=== PATIENT | female | born 1975 | race Caucasian/White ===

== ENCOUNTER 2021-07-03 10:36 | Outpatient (REF) | payer BC, SELFPAY ==
[2021-07-03 11:12] LABS: Binax Internal Control QC Valid; Binax Now Covid-19 Ag Negative (Negative); Binax Performed by: HO.BONILM
[2021-07-04 07:52] LABS: HBsAGNum1 0.22 S/CO (0.00-0.99); Hepatitis B Surface Antigen Negative (Negative)
[2021-07-04 08:51] LABS: Rubella IgG Antibody 7.73 Index; Rubeola IgG (Measles) >300.00 AU/mL
[2021-07-05 20:36] LABS: TS Negative Control Passed; TS Panel A 0; TS Panel B 0; TS Positive Control Passed; TSpotTB Negative (Negative)
[2021-07-07 08:17] LABS: HBS Num1 18.27 mIU/mL (0-7.99); ~Hepatitis B Surface Antibody REACTIVE (Nonreactive)
== END 2021-07-03 10:37 | disposition home or self-care (01) ==
LOC: HO.HMGCLDS 10:36
PROVIDERS: Internal Medicine; Visit Provider Internal Medicine
DX: Z00.00 Encounter for general adult medical examination without abnormal findings (principal); J06.9 Acute upper respiratory infection, unspecified; Z78.9 Other specified health status; Z11.1 Encounter for screening for respiratory tuberculosis
CPT/HCPCS: 36415; 86481; 86706; 86735; 86762; 86765; 86787; 87340

== ENCOUNTER 2021-07-03 10:43 | Outpatient (REF) | payer BC, SELFPAY | END 2021-07-03 10:44 | disposition home or self-care (01) | LOC: HO.HMGCLDS 10:43 | PROVIDERS: PCP Internal Medicine; Visit Provider Internal Medicine | DX: Z13.89 Encounter for screening for other disorder (principal) ==

== ENCOUNTER 2021-10-31 10:59 | Outpatient (REF) | payer OTHER, SELFPAY ==
[2021-10-31 13:53] LABS: MANUAL DIFF FLAG NO
[2021-10-31 13:58] LABS: Basophils Percent Auto 0.5 % (0-2); Eosinophils Absolute Auto 0.1 X10*3/uL (0.0-0.4); Eosinophils Percent Auto 1.6 % (0-4); Hematocrit 39.1 % (37.0-47.0); Hemoglobin 12.6 g/dl (12.0-16.0); Imm Gran Abs Auto 0.02 X10*3/uL (0.00-0.03); Imm Gran Pct Auto 0.3 % (0.0-0.4); Lymphocytes Absolute Auto 2.1 X10*3/uL (1.2-4.9); Lymphocytes Percent Auto 33.2 % (20-40); Mean Corpuscular HGB Conc 32.2 g/dl (31.0-35.0); Mean Corpuscular Hemoglobin 30.4 pg (27.0-33.0); Mean Corpuscular Volume 94.4 fL (80.0-98.0); Mean Platelet Volume 10.5 fL (9.4-12.3); Monocytes Absolute Auto 0.4 X10*3/uL (0.1-1.2); Monocytes Percent Auto 6.5 % (2-11); Neutrophils Absolute Auto 3.7 x10*3/uL (2.0-8.3); Neutrophils Percent Auto 57.9 % (45-73); Platelet Count 303 X10*3/uL (160-400); Red Blood Count 4.14 X10*6/uL (4.20-5.50); Red Cell Distribution Width 13.1 % (11.0-16.0); White Blood Count 6.4 X10*3/uL (4.8-10.8)
[2021-10-31 14:18] LABS: Alanine Aminotransferase 10 U/L (0-31); Alkaline Phosphatase 71 U/L (39-117); Anion Gap 10 (12-20); Aspartate Amino Transferase 12 U/L (5-31); Bilirubin Total 0.2 mg/dL (0.0-1.0); Blood Urea Nitrogen 8 mg/dL (9-16); Calcium 9.4 mg/dL (8.4-10.2); Carbon Dioxide 27 mmol/L (22-29); Chloride 105 mmol/L (96-108); Estimated Glomerular Filt Rate > 60; Glucose Random 92 mg/dL (60-115); Potassium 4.1 mmol/L (3.3-5.1); Sodium 138 mmol/L (135-145); Total Protein 6.9 g/dL (6.5-8.0)
[2021-10-31 14:41] LABS: TSH reflex Free T4 0.93 uIU/mL (0.32-4.0)
== END 2021-10-31 11:00 | disposition home or self-care (01) ==
LOC: HO.HMGCLDS 10:59
PROVIDERS: PCP Internal Medicine; Visit Provider Internal Medicine
DX: R05.9 Cough, unspecified (principal); R09.82 Postnasal drip; R53.83 Other fatigue; R68.89 Other general symptoms and signs
CPT/HCPCS: 36415; 80053; 84443; 85025

== ENCOUNTER 2022-01-03 10:10 | Outpatient (REF) | payer OTHER, SELFPAY ==
[2022-01-03 11:51] LABS: Alanine Aminotransferase 10 U/L (0-31); Albumin Level 4.1 g/dL (3.5-5.0); Alkaline Phosphatase 75 U/L (39-117); Anion Gap 11 (12-20); Aspartate Amino Transferase 13 U/L (5-31); Bilirubin Total 0.4 mg/dL (0.0-1.0); Blood Urea Nitrogen 8 mg/dL (9-16); Calcium 8.9 mg/dL (8.4-10.2); Carbon Dioxide 27 mmol/L (22-29); Chloride 104 mmol/L (96-108); Cholesterol 174 mg/dL; Estimated Glomerular Filt Rate > 60; Glucose Fasting 92 mg/dL (60-99); HDL Cholesterol 53 mg/dL; LDL Cholesterol Calculated 100 mg/dl; Potassium 4.6 mmol/L (3.3-5.1); Sodium 137 mmol/L (135-145); Triglycerides 108 mg/dL
[2022-01-03 12:00] LABS: HBS Num1 13.84 mIU/mL (0-7.99); ~Hepatitis B Surface Antibody REACTIVE (Nonreactive)
[2022-01-03 12:13] LABS: TSH reflex Free T4 0.96 uIU/mL (0.32-4.0); Vitamin D 25-OH Total 21.4 ng/mL (>30)
== END 2022-01-03 10:11 | disposition home or self-care (01) ==
LOC: HO.HMGCLDS 10:10
PROVIDERS: PCP Internal Medicine; Visit Provider Internal Medicine
DX: Z00.00 Encounter for general adult medical examination without abnormal findings (principal); Z78.9 Other specified health status
CPT/HCPCS: 36415; 80053; 80061; 82306; 84443; 86706

== ENCOUNTER 2022-07-18 09:12 | Outpatient (REF) | payer OTHER, SELFPAY ==
[2022-07-18 12:22] LABS: Syphilis Screen Nonreactive (Nonreactive)
[2022-07-18 12:29] LABS: HIV AB/AG Nonreactive (Nonreactive); HIV Num 1 0.05 S/CO (0.00-0.99)
[2022-07-18 13:39] LABS: CT PCR NOT DETECTED (Not Detect.); NG PCR NOT DETECTED (Not Detect.)
== END 2022-07-18 09:13 | disposition home or self-care (01) ==
LOC: HO.HMGCLDS 09:12
PROVIDERS: PCP Internal Medicine; Visit Provider Internal Medicine
DX: Z11.9 Encounter for screening for infectious and parasitic diseases, unspecified (principal); Z11.4 Encounter for screening for human immunodeficiency virus [HIV]; Z11.3 Encounter for screening for infections with a predominantly sexual mode of transmission
CPT/HCPCS: 0353U; 36415; 86780; 87389

== ENCOUNTER 2023-01-21 07:44 | Outpatient (AMB) | payer OTHER, SELFPAY ==
--- NOTE | 2023-01-21 07:51 | MHC.PC.OV ---
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 Required: No Accompanied by: Self / Same As Patient Allergies aloe [ALOE] Allergy (Intermediate, Verified 01/21/23 07:53) HIVES azithromycin [From ZITHROMAX] Allergy (Intermediate, Verified 01/21/23 07:53) HIVES Penicillins [PCN] Allergy (Intermediate, Verified 01/21/23 07:53) HIVES sulfamethoxazole [From BACTRIM] Allergy (Intermediate, Verified 01/21/23 07:53) HIVES trimethoprim [From BACTRIM] Allergy (Intermediate, Verified 01/21/23 07:53) HIVES amoxicillin Allergy (Unknown, Verified 01/21/23 07:53) unknown penicillamine Allergy (Unknown, Verified 01/21/23 07:53) Unknown Sulfa (Sulfonamide Antibiotics) Allergy (Unknown, Verified 01/21/23 07:53) Swelling Medication List - Last Reconciled 01/21/23 by Milena Moy MD doxylamine succinate (Unisom (doxylamine)) 25 mg PO BEDTIME PRN esomeprazole magnesium (Nexium) 20 mg PO DAILY [tylenol PO] Tobacco use date assessed: 01/21/23 Dental Screening Dental Screen Date: 01/21/23 Did you have a dental visit in the last 12 months?: Yes Did you have a dental problem in the last 6 months where you did not have access to dental care?: No Was dental information given to patient?: Patient has dentist HPI Annual PE HPI Details Pt presents for PE. 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 1. Little interest or pleasure in doing things: several days 2. Feeling down, depressed, or hopeless: several days 3. Trouble falling or staying asleep, or sleeping too much: nearly every day 4. Feeling tired or having little energy: nearly every day 5. Poor appetite or overeating: nearly every day 6. Feeling bad about yourself - or that you are a failure or have let yourself or your family down: several days 7. Trouble concentrating on things, such as reading the newspaper or watching television: several days 8. Moving or speaking so slowly that other people could have noticed. Or the opposite - being so fidgety or restless that you have been moving around a lot more than usual: not at all 9. Thoughts that you would be better off or of hurting yourself in some way: not at all Total score: 13 Depression Screening Interpretation: Positive 34639 - PHQ-9 Billing: Yes Source: Developed by Drs. Santana Ceron, Ester Maher, Durga Caballero and colleagues, with an educational ai from [employer]. Thrive Questionnaire Date Thrive assessed: 01/21/23 I am a: Patient What is your living situation today?: I have a steady place to live Within the past 12 months, did the food you bought not last and you didn't have the money to get more?: Never true Within the past 12 months, did you worry whether your food would run out before you got money to buy more?: Never true Do you have trouble paying for medicines?: No Do you have trouble getting transportation to medical appointments?: No Do you have trouble paying your heating and electricity bill?: No Do you have trouble taking care of your child, family member or friend?: No Do you have trouble with day-to-day activities such as bathing, preparing meals, shopping, managing finances, etc.?: No Are you currently unemployed and looking for a job?: No Are you interested in more education?: No Please select the resources that you would like help with: None Currently or been in a relationship where the following occur: no concerns reported JUANY-7 AMB Questionnaire JUANY-7 Date JUANY - 7 assessed: 01/21/23 Feeling nervous, anxious, or on edge: 1 = Several days Not being able to stop or control worryin = Several days Worrying too much about different things: 1 = Several days Trouble relaxin = Nearly every day Being so restless that it is hard to sit still: 1 = Several days Becoming easily annoyed or irritable: 1 = Several days Feeling afraid as if something awful might happen: 1 = Several days Total JUANY-7 score (0-4 normal; 5-9 mild; 10-14 moderate; 15-21 severe): 9 Source: Developed by Drs. Santana Ceron, Ester Maher, Durga Caballero and colleagues, with an educational ai from [employer]. JUANY-7 Assessment Billing JUANY-7 Assessment Tool: JUANY-7 Assessment 61862 Review of Systems Const All systems reviewed & are unremarkable except as noted in HPI and below Reports no additional complaints Eyes Reports no additional complaints ENT Reports no additional complaints Card Reports no additional complaints GI Reports no additional complaints Reports no additional complaints Endo Reports no additional complaints Physical exam (Primary Care) Vital Signs: Last Vital Signs Pulse 70 01/21/23 07:56 BP 126/74 01/21/23 07:56 Pulse Ox 100 01/21/23 07:56 BMI result Body Mass Index 34.8 Tobacco/Smoking Status: Tobacco use Status Tobacco use date assessed 01/21/23 01/21/23 08:01 Patient Tobacco Use Status Never used Tobacco 01/21/23 07:56 e-Cigarette/Vaping Use Former Use 01/21/23 07:56 PHQ-9: PHQ-9 Score PHQ-9: Total score 13 01/21/23 08:01 Depression Screening Interpretation: Positive Thrive Assessment: Date of Thrive Assessment Date Thrive assessed 01/21/23 01/21/23 08:01 Currently or been in a relationship where the following occur: no concerns reported Const General: no acute distress HENMT Head: Yes normal to inspection Ears: hearing grossly normal bilaterally Mouth: Normal oral and palatal mucosa present Throat: Yes posterior oropharynx normal Eyes General: appearance normal, both eyes and all related structures Neck Neck: Yes no lymphadenopathy and Yes supple Chest Breast/axilla inspection: normal inspection of the breasts Breast/axilla palpation: normal palpation of the breasts Resp Effort & Inspection: normal respiratory effort Auscultation: clear to auscultation bilaterally Cardio Rhythm: regular rhythm Heart sounds: S1 normal heart sound present and S2 normal heart sound present GI Inspection: Yes normal to inspection Palpation (GI): No hepatosplenomegaly present Auscultation: normal bowel sounds External Female Exam: normal external appearance Speculum Exam - Vagina: normal appearance of the vagina Speculum Exam - Cervix: normal appearance of the cervix Bimanual exam- vagina & uterus: normal bimanual exam Assessment and Plan Assessment & Plan (1) Annual physical exam: Code(s): Z00.00 - Encounter for general adult medical examination without abnormal findings Plan: Well-balanced diet regular exercise discussed with the patient. she will have a fasting blood work today. Mammogram will be scheduled and patient will be referred to GI for colonoscopy. (2) Vitamin D deficiency: Code(s): E55.9 - Vitamin D deficiency, unspecified Plan: Continue vitamin-D supplement Orders: Orders MM screening mammo BI Today Z12.31 - Encounter for screening mammogram for malignant neoplasm of breast Comprehensive [place]. Panel Fast Today E55.9 - Vitamin D deficiency, unspecified, Z00.00 - Encounter for general adult medical examination without abnormal findings Lipid Panel Today E55.9 - Vitamin D deficiency, unspecified, Z00.00 - Encounter for general adult medical examination without abnormal findings TSH reflex Free T4 Today E55.9 - Vitamin D deficiency, unspecified, Z00.00 - Encounter for general adult medical examination without abnormal findings Vitamin D 25-OH Total Today E55.9 - Vitamin D deficiency, unspecified, Z00.00 - Encounter for general adult medical examination without abnormal findings Complete Blood Count Auto Diff Today E55.9 - Vitamin D deficiency, unspecified, Z00.00 - Encounter for general adult medical examination without abnormal findings IRON PROFILE Today E55.9 - Vitamin D deficiency, unspecified, Z00.00 - Encounter for general adult medical examination without abnormal findings Pap Smear Today Z00.00 - Encounter for general adult medical examination without abnormal findings Referrals Gastroenterology Referral Z00.00 - Encounter for general adult medical examination without abnormal findings Medications: New clindamycin phosphate 1% 1 appl topical BEDTIME 30 grams 1RF Coding Level of Care Code Est Pt Prev Care 40-64y(71985) Diagnoses Annual physical exam Z00.00 Vitamin D deficiency E55.9 Additional Codes JUANY-7 Assessment Billing - JUANY-7 Assessment Tool: JUANY-7 Assessment 45573 ([id number])
[2023-01-21 07:56] VITALS: BP 126/74; PULSE 70; O2SAT 100; BMI 34.8
== END 2023-01-21 08:56 | disposition home or self-care (01) ==
PROVIDERS: PCP Internal Medicine; Visit Provider Internal Medicine
DX: Z00.00 Encounter for general adult medical examination without abnormal findings (principal); E55.9 Vitamin D deficiency, unspecified
CPT/HCPCS: 99396

== ENCOUNTER 2023-01-21 08:55 | Outpatient (REF) | payer OTHER, SELFPAY ==
[2023-01-21 11:25] LABS: MANUAL DIFF FLAG NO
[2023-01-21 11:26] LABS: Appearance Urine Clear; Color Urine Yellow; Glucose Urine UA Negative (Negative); Leukocyte Esterase Urine Small (1+) (Negative); Nitrite Urine Negative (Negative); PH 6.5 (5.0-9.0); Specific Gravity - Urine 1.015 (1.005-1.025); UMIC TRIGGER UA YES; Urine Blood Negative (Negative); Urine Ketones Negative (Negative); Urine Protein Negative (Neg-Trace)
[2023-01-21 11:37] LABS: Bacteria Urine Trace (None Seen); RBC Urine 0-2 /HPF (0-2); WBC Urine 0-5 /HPF (0-5)
[2023-01-21 11:55] LABS: Basophils Absolute Auto 0.1 X10*3/uL (0.0-0.2); Basophils Percent Auto 1.1 % (0-2); Eosinophils Absolute Auto 0.1 X10*3/uL (0.0-0.4); Eosinophils Percent Auto 1.1 % (0-4); Hematocrit 42.1 % (37.0-47.0); Hemoglobin 13.3 g/dl (12.0-16.0); Imm Gran Abs Auto 0.02 X10*3/uL (0.00-0.03); Imm Gran Pct Auto 0.3 % (0.0-0.4); Lymphocytes Absolute Auto 1.8 X10*3/uL (1.2-4.9); Lymphocytes Percent Auto 27.7 % (20-40); Mean Corpuscular HGB Conc 31.6 g/dl (31.0-35.0); Mean Corpuscular Hemoglobin 30.3 pg (27.0-33.0); Mean Corpuscular Volume 95.9 fL (80.0-98.0); Monocytes Absolute Auto 0.4 X10*3/uL (0.1-1.2); Monocytes Percent Auto 6.6 % (2-11); Neutrophils Absolute Auto 4.1 x10*3/uL (2.0-8.3); Neutrophils Percent Auto 63.2 % (45-73); Platelet Count 275 X10*3/uL (160-400); Red Blood Count 4.39 X10*6/uL (4.20-5.50); Red Cell Distribution Width 12.8 % (11.0-16.0); White Blood Count 6.5 X10*3/uL (4.8-10.8)
[2023-01-21 12:11] LABS: Alanine Aminotransferase 11 U/L (0-31); Albumin Level 4.2 g/dL (3.5-5.0); Alkaline Phosphatase 68 U/L (39-117); Anion Gap 15 (12-20); Aspartate Amino Transferase 14 U/L (5-31); Bilirubin Total 0.5 mg/dL (0.0-1.0); Blood Urea Nitrogen 8 mg/dL (9-16); Calcium 9.3 mg/dL (8.4-10.2); Carbon Dioxide 23 mmol/L (22-29); Chloride 105 mmol/L (96-108); Cholesterol 176 mg/dL; Estimated Glomerular Filt Rate > 60; Glucose Fasting 89 mg/dL (60-99); HDL Cholesterol 60 mg/dL; Iron 106 mcg/dL (30-160); LDL Cholesterol Calculated 97 mg/dl; Percent Iron Saturation 36 % (15-50); Potassium 4.3 mmol/L (3.3-5.1); Sodium 139 mmol/L (135-145); Total Iron Binding Capacity 294 mcg/dL (228-428); Total Protein 7.3 g/dL (6.5-8.0); Triglycerides 97 mg/dL; Unsaturated Iron Binding 188 ug/dL
[2023-01-21 12:31] LABS: TSH reflex Free T4 0.94 uIU/mL (0.32-4.0)
[2023-01-29 06:34] LABS: HPV mRNA E6/E7 Not Detected (Not Detected)
== END 2023-01-21 08:56 | disposition home or self-care (01) ==
LOC: HO.HMGCLDS 08:55
PROVIDERS: PCP Internal Medicine; Visit Provider Internal Medicine
DX: Z00.00 Encounter for general adult medical examination without abnormal findings (principal); Z12.4 Encounter for screening for malignant neoplasm of cervix; Z11.51 Encounter for screening for human papillomavirus (HPV); E55.9 Vitamin D deficiency, unspecified
CPT/HCPCS: 36415; 80053; 80061; 81001; 83540; 84443; 85025; 87624; 88142

== ENCOUNTER 2023-02-13 13:14 | Outpatient (AMB) | payer OTHER, SELFPAY ==
--- NOTE | 2023-02-13 13:29 | MHC.OFFWIV ---
Intake Vital Signs 02/13/23 13:30 Weight 212 lb BP 120/80 Blood Pressure Location Rt brachial Position Sitting Pulse 85 Pulse Source Pulse Oximeter Temp 98.3 F Temp Source Oral Pulse Oximetry (%) 98 Oxygen Delivery Method Room Air Intake Visit Reasons: EP, Rash in face Intake Note: Patient here because she had an allergic reaction to the diflucan she was taking, she woke up the next day with swollen face and was given prednisone and told to take benadryl and still experiencing the rash which hurts . Patient Tobacco Use Status: Never used Tobacco Allergies aloe [ALOE] Allergy (Intermediate, Verified 02/14/23 09:19) HIVES azithromycin [From ZITHROMAX] Allergy (Intermediate, Verified 02/14/23 09:19) HIVES Penicillins [PCN] Allergy (Intermediate, Verified 02/14/23 09:19) HIVES sulfamethoxazole [From BACTRIM] Allergy (Intermediate, Verified 02/14/23 09:19) HIVES trimethoprim [From BACTRIM] Allergy (Intermediate, Verified 02/14/23 09:19) HIVES amoxicillin Allergy (Unknown, Verified 02/14/23 09:19) unknown penicillamine Allergy (Unknown, Verified 02/14/23 09:19) Unknown Sulfa (Sulfonamide Antibiotics) Allergy (Unknown, Verified 02/14/23 09:19) Swelling Medication List - Last Reconciled 02/14/23 by Diego Odonnell MD clindamycin phosphate 1% 1 appl topical BEDTIME doxylamine succinate (Unisom (doxylamine)) 25 mg PO BEDTIME PRN esomeprazole magnesium (Nexium) 20 mg PO DAILY hydrocortisone 2.5% 1 appl topical BID PRN [tylenol PO] Do you need a note to return to daycare/school/sports/work: No HPI EP, Rash in face HPI Details 48-year-old female presents to the office for a sick visit. Patient has a rash on the face that she is concerned about. Symptoms started last week and was seen at an of the walk-in facility. She was put on prednisone and Pepcid. She has begun to taper the dose on prednisone. The reason for her visit here is not very clear. Continues to have the redness on the face but the itching is decreasing. She has a few crusting lesions at the corners of her mouth. 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 Thickened and roughened skin at the corners of the mouth. Assessment & Plan Assessment & Plan (1) Rash: Code(s): R21 - Rash and other nonspecific skin eruption Plan: Continue the tapering dose of prednisone. Hydrocortisone cream to apply at the corners of the mouth. Reassurance. Medications: New hydrocortisone 2.5% 1 appl topical BID PRN 20 grams 0RF skin irritation Coding Level of Care Code Est Pt Level 3 (88455) Diagnoses Rash R21
[2023-02-13 13:30] VITALS: BP 120/80; PULSE 85; TEMP 36.8; O2SAT 98
== END 2023-02-13 14:33 | disposition home or self-care (01) ==
PROVIDERS: PCP Internal Medicine; Visit Provider Internal Medicine
DX: R21 Rash and other nonspecific skin eruption (principal)
CPT/HCPCS: 99213

== ENCOUNTER 2023-03-02 07:49 | Outpatient (REF) | payer OTHER, SELFPAY ==
--- NOTE | ~2023-03-02 | MM_ITS ---
EXAMINATION: MM SCREENING DIGITAL BREAST TOMOSYNTHESIS, BILATERAL CLINICAL INFORMATION: Screening. Asymptomatic. COMPARISON: Mammography: This is a baseline study. TECHNIQUE: Digital breast tomosynthesis is performed in both the craniocaudal and mediolateral oblique views along with computer-aided detection (CAD). Synthesized 2D images are generated from the tomosynthesis. FINDINGS: There are scattered areas of fibroglandular density (ACR BI-RADS breast composition Category b). There are no significant masses, abnormal calcifications, or other abnormalities. MM/MM tomosynthesis screening BI IMPRESSION: No mammographic evidence of malignancy. ASSESSMENT: BI-RADS BI-RADS 1 - Negative RECOMMENDATION: Routine annual mammography screening. 1 year F/U This examination should not preclude the clinical evaluation of a suspicious palpable abnormality. This patient's information was entered into a reminder system with a target due date for their next mammogram.
== END 2023-03-02 07:50 | disposition home or self-care (01) ==
LOC: HO.MAMMO 07:49
PROVIDERS: PCP Internal Medicine; Visit Provider Internal Medicine
DX: Z12.31 Encounter for screening mammogram for malignant neoplasm of breast (principal)
CPT/HCPCS: 77063; 77067

== ENCOUNTER → 2023-03-02 08:00 | Outpatient (BNV) | payer OTHER, SELFPAY | PROVIDERS: PCP Internal Medicine; Visit Provider Radiology Diagnostic Radiology | DX: Z12.31 Encounter for screening mammogram for malignant neoplasm of breast (principal) | CPT/HCPCS: 77063; 77067 ==

== ENCOUNTER 2023-09-27 09:13 | Outpatient (AMB) | payer OTHER, SELFPAY ==
[2023-09-27 09:14] VITALS: BP 150/90; PULSE 86; TEMP 36.8; O2SAT 97; BMI 36.3
--- NOTE | 2023-09-27 09:14 | AM.OFFWIN_ITS ---
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) Intake Note: pt is here today for chest tight chills started 3 weeks ago Patient Tobacco Use Status: Never used Tobacco Allergies aloe [ALOE] Allergy (Intermediate, Verified 09/27/23 09:38) HIVES azithromycin [From ZITHROMAX] Allergy (Intermediate, Verified 09/27/23 09:38) HIVES Penicillins [PCN] Allergy (Intermediate, Verified 09/27/23 09:38) HIVES sulfamethoxazole [From BACTRIM] Allergy (Intermediate, Verified 09/27/23 09:38) HIVES trimethoprim [From BACTRIM] Allergy (Intermediate, Verified 09/27/23 09:38) HIVES amoxicillin Allergy (Unknown, Verified 09/27/23 09:38) unknown penicillamine Allergy (Unknown, Verified 09/27/23 09:38) Unknown Sulfa (Sulfonamide Antibiotics) Allergy (Unknown, Verified 09/27/23 09:38) Swelling Medication List - Last Reconciled 09/27/23 by Diego Odonnell MD doxylamine succinate (Unisom (doxylamine)) 25 mg PO BEDTIME PRN esomeprazole magnesium (Nexium) 20 mg PO DAILY [tylenol PO] Do you need a note to return to daycare/school/sports/work: Yes HPI EP 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 For many months she has been experiencing flutters in her chest, nervousness. She had to leave work as her symptoms worsened this morning. She has talked about this to her primary care in her physical appointment, therapy was suggested, it could not be arranged due to insurance issues. Patient does not sleep well at night and has symptoms of fatigue all day. Does not exercise and does not follow any particular diet. 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 Tobacco Use Status: Never used Tobacco e-Cigarette/Vaping Use: Former Use Current occupational status: employed Cognitive needs: No Hearing needs: No Vision needs: Yes Physical Exam Vital Signs: Last Vital Signs Temp 98.2 F 09/27/23 09:14 Pulse 86 09/27/23 09:14 BP 150/90 H 09/27/23 09:14 Pulse Ox 97 09/27/23 09:14 Oxygen Delivery Method Room Air 09/27/23 09:14 BMI result Body Mass Index 36.3 Const General: cooperative and healthy appearing Nutritional Appearance: well nourished Orientation/consciousness: patient oriented x3 Limitations: no limitations HEENT Head: Yes normal to inspection Eyes General: appearance normal, both eyes and all related structures Neck Neck: Yes normal visual inspection Chest Chest palpation & inspection: normal palpation of entire chest wall Resp Effort & Inspection: normal respiratory effort Neuro General: patient oriented x3 Office Procedures EKG Details: NSR. [id number], Complete Assessment & Plan Assessment & Plan (1) Fatigue due to depression: Code(s): F32.A - Depression, unspecified; R53.83 - Other fatigue Plan: Her symptoms are mostly related to anxiety. EKG was reviewed which is within normal limits. Blood work to rule out any thyroid disorders has been ordered. Community health navigator was contacted and patient had a discussion with her regarding therapy options. Note for work given. Orders: Orders Complete Blood Count no Diff Today F32.A - Depression, unspecified, R53.83 - Other fatigue Thyroid Stimulating Hormone Today F32.A - Depression, unspecified, R53.83 - Other fatigue AMB EKG-In Office Today R07.9 - Chest pain, unspecified Basic Metabolic Panel Today F32.A - Depression, unspecified, R53.83 - Other fatigue Liver Panel Today F32.A - Depression, unspecified, R53.83 - Other fatigue Lipid Panel Today F32.A - Depression, unspecified, R53.83 - Other fatigue UA and rflx microscopic Today F32.A - Depression, unspecified, R53.83 - Other fatigue Coding Level of Care Code Est Pt Level 4 (72084) Diagnoses Fatigue due to depression F32.A; R53.83 CPT Codes EKG - CPT: 04455-[id number], Complete ([id number])
== END 2023-09-27 10:08 | disposition home or self-care (01) ==
PROVIDERS: PCP Internal Medicine; Visit Provider Internal Medicine
DX: F32.A Depression, unspecified (principal); R53.83 Other fatigue
CPT/HCPCS: 93000; 99214

== ENCOUNTER 2023-09-27 09:59 | Outpatient (REF) | payer OTHER, SELFPAY ==
[2023-09-27 13:51] LABS: Hematocrit 39.5 % (37.0-47.0); Hemoglobin 12.8 g/dl (12.0-16.0); Mean Corpuscular HGB Conc 32.4 g/dl (31.0-35.0); Mean Corpuscular Hemoglobin 30.8 pg (27.0-33.0); Mean Platelet Volume 10.7 fL (9.4-12.3); Platelet Count 314 X10*3/uL (160-400); Red Blood Count 4.16 X10*6/uL (4.20-5.50); Red Cell Distribution Width 14.2 % (11.0-16.0); White Blood Count 7.6 X10*3/uL (4.8-10.8)
[2023-09-27 14:10] LABS: Appearance Urine Cloudy; Color Urine Yellow; Glucose Urine UA Negative (Negative); Leukocyte Esterase Urine Negative (Negative); Nitrite Urine Negative (Negative); PH 5.5 (5.0-9.0); Urine Blood Negative (Negative); Urine Ketones Negative (Negative); Urine Protein Negative (Neg-Trace)
[2023-09-27 14:20] LABS: Alanine Aminotransferase 11 U/L (0-31); Alkaline Phosphatase 76 U/L (39-117); Anion Gap 11 (12-20); Aspartate Amino Transferase 17 U/L (5-31); Bilirubin Direct < 0.2 mg/dL (0.0-0.5); Bilirubin Total 0.2 mg/dL (0.0-1.0); Blood Urea Nitrogen 10 mg/dL (9-16); Calcium 9.1 mg/dL (8.4-10.2); Carbon Dioxide 28 mmol/L (22-29); Chloride 105 mmol/L (96-108); Cholesterol 180 mg/dL (<200); Estimated Glomerular Filt Rate > 60; Glucose Random 107 mg/dL (60-115); HDL Cholesterol 56 mg/dL (>40); LDL Cholesterol Calculated 90 mg/dL (<100); Potassium 4.2 mmol/L (3.3-5.1); Sodium 140 mmol/L (135-145); Total Protein 7.3 g/dL (6.5-8.0); Triglycerides 171 mg/dL (<150)
[2023-09-27 14:24] LABS: Thyroid Stimulating Hormone 0.78 uIU/mL (0.32-4.0)
== END 2023-09-27 10:00 | disposition home or self-care (01) ==
LOC: HO.HMGCLDS 09:59
PROVIDERS: PCP Internal Medicine; Visit Provider Internal Medicine
DX: Z13.6 Encounter for screening for cardiovascular disorders (principal); F32.A Depression, unspecified; R53.83 Other fatigue
CPT/HCPCS: 36415; 80048; 80061; 80076; 81003; 84443; 85027

== ENCOUNTER 2024-01-04 09:22 | Outpatient (REF) | payer OTHER, SELFPAY ==
[2024-01-04 11:53] LABS: Vitamin D 25-OH Total 90.9 ng/mL (>30)
[2024-01-06 04:58] LABS: HBS Num1 12.51 mIU/mL (0-7.99); ~Hepatitis B Surface Antibody REACTIVE (Nonreactive)
[2024-01-07 19:34] LABS: Rubella IgG Antibody 6.59 Index; Rubeola IgG (Measles) >300.00 AU/mL
== END 2024-01-04 09:23 | disposition home or self-care (01) ==
LOC: HO.HMGCLDS 09:22
PROVIDERS: PCP Internal Medicine; Visit Provider Internal Medicine
DX: Z00.00 Encounter for general adult medical examination without abnormal findings (principal); E55.9 Vitamin D deficiency, unspecified; Z78.9 Other specified health status
CPT/HCPCS: 36415; 82306; 86706; 86735; 86762; 86765; 86787

== ENCOUNTER 2024-01-29 08:12 | Outpatient (AMB) | payer OTHER, SELFPAY ==
--- NOTE | 2024-01-29 08:17 | A.OFFPC_ITS ---
Vital Signs 01/29/24 08:18 Height 5 ft 5 in Weight 217 lb BMI 36.1 BP 120/84 Blood Pressure Location Rt brachial Position Sitting Pulse 88 Pulse Source Pulse Oximeter Pulse Oximetry (%) 99 Oxygen Delivery Method Room Air Intake Visit Reasons: PE Intake Note: Pt is here today for PE. Allergies aloe [ALOE] Allergy (Intermediate, Verified 01/29/24 08:21) HIVES azithromycin [From ZITHROMAX] Allergy (Intermediate, Verified 01/29/24 08:21) HIVES Penicillins [PCN] Allergy (Intermediate, Verified 01/29/24 08:21) HIVES sulfamethoxazole [From BACTRIM] Allergy (Intermediate, Verified 01/29/24 08:21) HIVES trimethoprim [From BACTRIM] Allergy (Intermediate, Verified 01/29/24 08:21) HIVES amoxicillin Allergy (Unknown, Verified 01/29/24 08:21) unknown penicillamine Allergy (Unknown, Verified 01/29/24 08:21) Unknown Sulfa (Sulfonamide Antibiotics) Allergy (Unknown, Verified 01/29/24 08:21) Swelling fluconazole Allergy (Verified 01/29/24 08:21) swelling in the face lips get blisters Medication List - Last Reconciled 01/29/24 by Milena Moy MD doxylamine succinate (Unisom (doxylamine)) 25 mg PO BEDTIME PRN esomeprazole magnesium (Nexium) 20 mg PO DAILY [tylenol PO] valacyclovir 1,000 mg PO DAILY Tobacco use date assessed: 01/29/24 Dental Screening Dental Screen Date: 01/29/24 Did you have a dental visit in the last 12 months?: Yes Did you have a dental problem in the last 6 months where you did not have access to dental care?: No Was dental information given to patient?: Patient has dentist HPI PE HPI Details Pt presents for PE. Pt has been trying to lose weight decreasing caloric intake and exercising regularly. Pt c/o sore throat for 2 days, no fever, chills. 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 1. Little interest or pleasure in doing things: more than half the days 2. Feeling down, depressed, or hopeless: more than half the days 3. Trouble falling or staying asleep, or sleeping too much: nearly every day 4. Feeling tired or having little energy: nearly every day 5. Poor appetite or overeating: nearly every day 6. Feeling bad about yourself - or that you are a failure or have let yourself or your family down: more than half the days 7. Trouble concentrating on things, such as reading the newspaper or watching television: several days 8. Moving or speaking so slowly that other people could have noticed. Or the opposite - being so fidgety or restless that you have been moving around a lot more than usual: not at all 9. Thoughts that you would be better off or of hurting yourself in some way: not at all Total score: 16 Depression Screening Interpretation: Positive (established with a therapist, not interested in meds) Depression Screening Follow-up: Existing condition and In treatment Depression Screening Done: Yes Source: Developed by Drs. Santana Ceron, Ester Maher, Durga Caballero and colleagues, with an educational ai from [email or web address]. Thrive Questionnaire Date Thrive assessed: 01/29/24 I am a: Patient What is your living situation today?: I have a steady place to live Within the past 12 months, did the food you bought not last and you didn't have the money to get more?: Never true Within the past 12 months, did you worry whether your food would run out before you got money to buy more?: Never true Do you have trouble paying for medicines?: Yes Do you have trouble getting transportation to medical appointments?: No Do you have trouble paying your heating and electricity bill?: No Do you have trouble taking care of your child, family member or friend?: No Do you have trouble with day-to-day activities such as bathing, preparing meals, shopping, managing finances, etc.?: No Are you currently unemployed and looking for a job?: No Are you interested in more education?: Yes Please select the resources that you would like help with: Housing/[facility] Currently or been in a relationship where the following occur: No concerns reported THRIVE Score: 0 AUDIT C Alcohol Use Questionnaire (AUDIT-C) 1. How often do you have a drink containing alcohol?: Never 3. How often do you have six or more drinks on one occasion?: Never Total Score: 0 JUANY-7 AMB Questionnaire JUANY-7 Date JUANY - 7 assessed: 01/29/24 Feeling nervous, anxious, or on edge: 2 = More than half the days Not being able to stop or control worryin = More than half the days Worrying too much about different things: 1 = Several days Trouble relaxin = Nearly every day Being so restless that it is hard to sit still: 1 = Several days Becoming easily annoyed or irritable: 1 = Several days Feeling afraid as if something awful might happen: 2 = More than half the days Total JUANY-7 score (0-4 normal; 5-9 mild; 10-14 moderate; 15-21 severe): 12 Source: Developed by Drs. Santana Ceron, Ester Maher, Durga Caballero and colleagues, with an educational ai from [email or web address]. Review of Systems Const All systems reviewed & are unremarkable except as noted in HPI and below Reports no additional complaints Eyes Reports no additional complaints ENT Reports no additional complaints Card Reports no additional complaints Resp Reports no additional complaints GI Reports no additional complaints Reports no additional complaints Physical exam (Primary Care) Vital Signs: Last Vital Signs Pulse 88 01/29/24 08:18 BP 120/84 01/29/24 08:18 Pulse Ox 99 01/29/24 08:18 Oxygen Delivery Method Room Air 01/29/24 08:18 BMI result Body Mass Index 36.1 Tobacco/Smoking Status: Tobacco use Status Tobacco use date assessed 01/29/24 01/29/24 08:23 Patient Tobacco Use Status Never used Tobacco 01/29/24 08:23 e-Cigarette/Vaping Use Former Use 01/29/24 08:17 PHQ-9: PHQ-9 Score PHQ-9: Total score 16 01/29/24 10:53 Depression Screening Interpretation: Positive (established with a therapist, not interested in meds) Depression Screening Follow-up: Existing condition and In treatment Thrive Assessment: Date of Thrive Assessment Date Thrive assessed 01/29/24 01/29/24 08:23 Currently or been in a relationship where the following occur: No concerns reported Const General: comfortable HENMT Head: Yes normal to inspection Ears: hearing grossly normal bilaterally Face and sinus: Yes normal facial exam Mouth: Normal oral and palatal mucosa present Throat: Yes posterior oropharynx normal Eyes General: appearance normal, both eyes and all related structures Neck Neck: Yes no lymphadenopathy and Yes supple Resp Effort & Inspection: normal respiratory effort Auscultation: clear to auscultation bilaterally Cardio Rhythm: regular rhythm Heart sounds: S1 normal heart sound present and S2 normal heart sound present GI Inspection: Yes normal to inspection Palpation (GI): Soft to palpation Percussion: Yes normal to percussion Auscultation: normal bowel sounds Results AMB Rapid Strep AMB Rapid Strep Negative Last Edit by RUPA Nation on 01/29/24 09: 22 Immunizations Boostrix Tdap 2.5 Lf unit-8 mcg-5 Lf/0.5 mL intramuscular syringe Performing Provider: Milena Moy MD Performing Location: [facility] Administered by: RUPA Nation on 01/29/24 09:20 Dose Route Admin Location Dispensed Lot Number Expiration Date NDC Advertising Inserter 0.5 mL IM Right Deltoid 0.5 mL [id number] 02/07/26 [id number] [employer] VIS Given Date VIS Provided VIS Publication Date 01/29/24 Single Vaccine 21 Eligibility Eligibility Date Funding Source Not [facility] Eligible 01/29/24 Private Results Reviewed Results Reviewed: Laboratory Last Values Strep Scn Rapid Clinic Negative 01/29/24 09:21 Assessment and Plan Assessment & Plan (1) Vitamin D deficiency: Code(s): E55.9 - Vitamin D deficiency, unspecified Plan: cont vit D (2) Annual physical exam: Code(s): Z00.00 - Encounter for general adult medical examination without abnormal findings Plan: Well-balanced diet regular exercise discussed with the patient (3) Normal pelvic exam: 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 Code(s): Z01.419 - Encounter for gynecological examination (general) (routine) without abnormal findings Plan: Follow-up with supervisor particleboard (4) Urinary bladder incontinence: Code(s): R32 - Unspecified urinary incontinence Plan: Follow-up with urology (5) Anxiety and depression: Comment: Patient is established with therapist and psychiatry, not interested in medications Code(s): F41.9 - Anxiety disorder, unspecified; F32.A - Depression, unspecified (6) BMI 36.0-36.9,adult: Code(s): Z68.36 - Body mass index [BMI] 36.0-36.9, adult Plan: Despite 6 months of decreasing caloric intake and regular physical activity patient is unable to lose weight Wegovy will be tried and patient will follow-up in 2 months Orders: Orders IRON PROFILE Today Z00.00 - Encounter for general adult medical examination without abnormal findings, Z01.419 - Encounter for gynecological examination (ge neral) (routine) without abnormal findings HIV Ab/Ag Today R53.83 - Other fatigue, Z00.00 - Encounter for general adult medical examination without abnormal findings CT NG by PCR Today R53.83 - Other fatigue, Z00.00 - Encounter for general adult medical examination without abnormal findings Vitamin B12 and Folate Today Z00.00 - Encounter for general adult medical examination without abnormal findings, Z01.419 - Encounter for gynecological examination (general) (routine) without abnormal findings US bladder Today R32 - Unspecified urinary incontinence Syphilis Screen Today R53.83 - Other fatigue, Z00.00 - Encounter for general adult medical examination without abnormal findings PAP rfx HPV E6/E7 and 16 18/45 Today Z00.00 - Encounter for general adult medical examination without abnormal findings TDaP Immunization Today Z23 - Encounter for immunization AMB Rapid Strep Screen Today Z13.9 - Encounter for screening, unspecified Medications: New Wegovy (semaglutide (weight loss)) administer weeks 1 through 4 of therapy, then 0.5 mg weekly 0.25 mg (0.5 mL) subcut QWEEK 2 mL 1RF NS hydrocortisone acetate (Proctocort) 30 mg RI BID 12 ea 2RF valacyclovir 1,000 mg PO DAILY 90 tabs 3RF Coding Level of Care Code Est Pt Prev Care 40-64y(71924) Diagnoses Vitamin D deficiency E55.9 Annual physical exam Z00.00 Normal pelvic exam Z01.419 Urinary bladder incontinence R32 Anxiety and depression F41.9; F32.A BMI 36.0-36.9,adult Z68.36
[2024-01-29 08:18] VITALS: BP 120/84; PULSE 88; O2SAT 99; BMI 36.1
== END 2024-01-29 10:53 | disposition home or self-care (01) ==
PROVIDERS: PCP Internal Medicine; Visit Provider Internal Medicine
DX: Z00.00 Encounter for general adult medical examination without abnormal findings (principal); E55.9 Vitamin D deficiency, unspecified; R32 Unspecified urinary incontinence; Z23 Encounter for immunization; J02.9 Acute pharyngitis, unspecified; F32.A Depression, unspecified; F41.9 Anxiety disorder, unspecified; Z68.36 Body mass index [BMI] 36.0-36.9, adult
CPT/HCPCS: 87880; 90471; 90715; 99396

== ENCOUNTER 2024-01-29 09:23 | Outpatient (REF) | payer OTHER, SELFPAY ==
[2024-01-29 13:22] LABS: CT PCR NOT DETECTED (Not Detect.); NG PCR NOT DETECTED (Not Detect.)
[2024-01-29 14:16] LABS: Vitamin B12 595 pg/mL (200-900)
[2024-01-29 14:20] LABS: Iron 56 mcg/dL (30-160); Percent Iron Saturation 17 % (15-50); Total Iron Binding Capacity 334 mcg/dL (228-428); Unsaturated Iron Binding 278 ug/dL
[2024-01-30 07:49] LABS: Syphilis Screen Nonreactive (Nonreactive)
[2024-01-30 07:52] LABS: HIV AB/AG Nonreactive (Nonreactive); HIV Num 1 0.06 S/CO (0.00-0.99)
[2024-02-06 09:49] LABS: HPV mRNA E6/E7 Not Detected (Not Detected)
== END 2024-01-29 09:24 | disposition home or self-care (01) ==
LOC: HO.HMGCLDS 09:23
PROVIDERS: PCP Internal Medicine; Visit Provider Internal Medicine
DX: Z00.00 Encounter for general adult medical examination without abnormal findings (principal); Z01.419 Encounter for gynecological examination (general) (routine) without abnormal findings; R53.83 Other fatigue
CPT/HCPCS: 36415; 82607; 82746; 83540; 86780; 87389; 87491; 87591; 87624; 87625; 88175

== ENCOUNTER 2024-02-12 10:24 | Outpatient (REF) | payer OTHER, SELFPAY ==
--- NOTE | ~2024-02-12 | US_ITS ---
EXAMINATION: US PELVIS LIMITED (BLADDER) CLINICAL INFORMATION: Urinary incontinence. COMPARISON: CT abdomen and pelvis 10/09/2006. TECHNIQUE: Real-time imaging of the bladder. FINDINGS: BLADDER: Well distended and is unremarkable. Bilateral ureteral jets are demonstrated. Prevoid bladder volume is 318 mL. Postvoid bladder volume is 32 mL. US/US bladder IMPRESSION: Postvoid bladder volume of 32 mL. Electronically signed by: Collette Costa MD 02/26/2024 06:00 AM EDT
== END 2024-02-12 10:25 | disposition home or self-care (01) ==
LOC: HO.HMGCX 10:24
PROVIDERS: PCP Internal Medicine; Visit Provider Internal Medicine
DX: R32 Unspecified urinary incontinence (principal)
CPT/HCPCS: 76857

== ENCOUNTER 2024-04-29 08:46 | Outpatient (AMB) | payer OTHER, SELFPAY ==
--- NOTE | 2024-04-29 09:07 | A.OFFVIS_ITS ---
Intake Visit Reasons: PEDIATRIC PHYSIATRIST urinary incontinence Intake Note: New Patient presents for initial visit for incontinence and leakage Urology Medications: none Blood Thinner: none PVR: 0ml's Supervisory Training Specialist Required: No Accompanied by: Self / Same As Patient Allergies aloe [ALOE] Allergy (Intermediate, Verified 04/29/24:) HIVES azithromycin [From ZITHROMAX] Allergy (Intermediate, Verified 04/29/24) HIVES Penicillins [PCN] Allergy (Intermediate, Verified 04/29/24) HIVES sulfamethoxazole [From BACTRIM] Allergy (Intermediate, Verified 04/29/24) HIVES trimethoprim [From BACTRIM] Allergy (Intermediate, Verified 04/29/24) HIVES amoxicillin Allergy (Unknown, Verified 04/29/24) unknown penicillamine Allergy (Unknown, Verified 04/29/24) Unknown Sulfa (Sulfonamide Antibiotics) Allergy (Unknown, Verified 04/29/24) Swelling fluconazole Allergy (Verified 04/29/24) swelling in the face lips get blisters HPI Comments Details: Bushra is a very pleasant 49-year-old female patient of Dr. Moy. She has a past medical history of depression. She presents to the office today as a new patient for mixed urinary incontinence. Patient reports symptoms have been present for quite sometime however has recently started going to the gym and feels symptoms have become more bothersome. She does report a previous history of 3 vaginal births of 2 average size babies and 1 large baby. Labors were quick less than 5 hours long. She otherwise denies urinary urgency, urinary frequency, nocturia, hematuria, dysuria, foul smelling urine, changes to urinary stream, flank pain, fever, and or chills. We discussed at length potential causes of mixed urinary incontinence. We discussed further treatment options and risks and benefits of these treatment options. In review of patient's chart it appears bladder ultrasound was ordered and performed. These results reviewed with the patient today. The bladder is well distended unremarkable. Bladder jets are demonstrated. Pre void bladder volume is a proximally 320 mL. Postvoid bladder volume is approximately 30 mL. In office urinalysis results reviewed with the patient today. PVR 0 mL. She otherwise offers no other issues or concerns at this time. 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 Tobacco Use Status: Never used Tobacco e-Cigarette/Vaping Use: Former Use service: No Current occupational status: employed Cognitive needs: No Hearing needs: No Vision needs: Yes Review of Systems Const All systems reviewed & are unremarkable except as noted in HPI and below Physical Exam Const General: cooperative, healthy appearing, comfortable, no acute distress, well developed, alert and awake Nutritional Appearance: overweight Orientation/consciousness: patient oriented x3 Limitations: no limitations HEENT Head: Yes normal to inspection, Yes normocephalic and Yes atraumatic Ears: hearing grossly normal bilaterally Eyes General: appearance normal, both eyes and all related structures Neck Neck: Yes normal visual inspection and Yes trachea midline Chest Chest palpation & inspection: normal inspection of the chest Resp Effort & Inspection: normal respiratory effort and able to speak in complete sentences Cardio Rate: regular rate GI Inspection: Yes normal to inspection General: Yes no CVA tenderness Back/Spine/Pelvis Back: no CVA tenderness Skin General skin exam: no rashes or lesions noted Neuro General: patient oriented x3 Extrem General: Yes normal to inspection Psych Appearance: grossly normal and well kempt Mental Status: mental status grossly normal Speech and movement: Normal speech and movement present and Clear speech present Affect: normal affect Attitude: cooperative Thought process: Normal thought process present Thought content: Normal thought content present Insight: Fair insight present (Psych) Judgement: Fair judgement present (Psych) Office Procedures Post Void Residual Post Residual Void Post Void Residual (PVR): 0 [id number] Void Residual by ultrasound Results AMB Urinalysis, Automated UA Leukoctes 0 Radha/uL Last Edit by Lisset Weber on 04/29/24 09:29 UA Nitrite Last Edit by Lisset Weber on 04/29/24 09:29 UA Urobilinogen 0.2 mg/dL Last Edit by Lisset Weber on 04/29/24 09:29 UA Protein 15 mg/dL Last Edit by Lisset Weber on 04/29/24 09:29 UA pH 7.0 Last Edit by Lisset Weber on 04/29/24 09:29 UA Blood 0 Torres/uL Last Edit by Lisset Weber on 04/29/24 09:29 UA Specific Antelope 1.015 Last Edit by Lisset Weber on 04/29/24 09:29 UA Ketone Last Edit by Lisset Weber on 04/29/24 09:29 UA Bilirubin 0 mg/dL Last Edit by Lisset Weber on 04/29/24 09:29 UA Glucose 0 mg/dL Last Edit by Lisset Weber on 04/29/24 09:29 Results Reviewed Results Reviewed: Laboratory Last Values Urine pH (Auto) 7.0 04/29/24 09:28 Specific Antelope (Auto) 1.015 04/29/24 09:28 Urine Protein (Auto) 15 mg/dL 04/29/24 09:28 Glucose (UA)(Auto) 0 mg/dL 04/29/24 09:28 Urine Blood (Auto) 0 Torres/uL 04/29/24 09:28 Urine Bilirubin (Auto) 0 mg/dL 04/29/24 09:28 Urine Urobilinogen (Auto) 0.2 mg/dL 04/29/24 09:28 Leukocyte Esterase (Auto) 0 Radha/uL 04/29/24 09:28 Date of Service: 02/12/24 EXAMINATION: US PELVIS LIMITED (BLADDER) Real-time imaging of the bladder. FINDINGS: BLADDER: Well distended and is unremarkable. Bilateral ureteral jets are demonstrated. Prevoid bladder volume is 318 mL. Postvoid bladder volume is 32 mL. IMPRESSION: Postvoid bladder volume of 32 mL. Assessment & Plan Assessment & Plan (1) Mixed incontinence urge and stress: Code(s): N39.46 - Mixed incontinence Category: Medical Plan In office urinalysis results with the patient today; as noted above. PVR 0 mL. We discussed at length potential causes of mixed urinary incontinence as well as further treatment options and risks and benefits of these treatment options. Patient will attempt to perform pelvic floor exercises at home. Will obtain renal ultrasound. Follow-up in 3 months with PVR; or sooner with any issues, concerns, and or questions. Orders: Orders AMB Urinalysis Automated Today Z13.9 - Encounter for screening, unspecified AMB Post Void Residual by ultrasound Today R32 - Unspecified urinary incontinence US renal BI Today N39.46 - Mixed incontinence Patient Instructions: The patient had an opportunity to ask questions regarding the treatment plan. All questions were answered. Physical exam, labs, and imaging were discussed and reviewed in detail. As well as risks, benefits, and discussion of treatment choices. No major barriers to understanding were identified. The patient expressed understanding and agreement with the above treatment plan. The patient was made aware they should contact our office by phone for worsening of their current condition, the appearance of new symptoms, or with any questions or concerns. Compliance is encouraged with any medications and follow up testing that is ordered. It is a privilege to be allowed the opportunity to participate in? your urological care.? Again, if you have any questions or concerns If you have any questions or concerns please do not hesitate to contact me. The office is [phone]. This note is constructed using voice recognition software. While every effort has been made to ensure accuracy general assistant errors may have been included. Yours sincerely, KOMAL Soni Coding Level of Care Code New Pt Level 3 (78873) Diagnoses Mixed incontinence urge and stress N39.46 CPT Codes Post Residual Void - PVR CPT Code: 45920-Eiqk Void Residual by ultrasound ([id number])
== END 2024-04-29 09:52 | disposition home or self-care (01) ==
LOC: HO.HUSH 08:47
PROVIDERS: PCP Internal Medicine; Visit Provider Nurse Practitioner Family
DX: N39.46 Mixed incontinence (principal); Z13.9 Encounter for screening, unspecified
CPT/HCPCS: 99203

== ENCOUNTER → 2024-04-29 08:46 | Outpatient (BNVA) | payer OTHER, SELFPAY | PROVIDERS: PCP Internal Medicine; Visit Provider Nurse Practitioner Family | DX: N39.46 Mixed incontinence (principal) | CPT/HCPCS: 51798; 81003 ==

== ENCOUNTER 2024-06-30 08:13 | Outpatient (AMB) | payer OTHER, SELFPAY ==
[2024-06-30 08:34] VITALS: BP 134/90; PULSE 86; TEMP 36.8; O2SAT 98; BMI 36.6
--- NOTE | 2024-06-30 08:34 | MHC.OFFWIV ---
Intake Vital Signs 06/30/24 08:34 Height 5 ft 5 in Weight 220 lb BMI 36.6 BP 134/90 H Blood Pressure Location Rt brachial Position Sitting Pulse 86 Pulse Source Pulse Oximeter Temp 98.3 F Temp Source Oral Pulse Oximetry (%) 98 Oxygen Delivery Method Room Air Intake Visit Reasons: EP-headaches, nauseas, dizziness Intake Note: pt is here for headache, dizziness, nausea Patient Tobacco Use Status: Never used Tobacco Allergies aloe [ALOE] Allergy (Intermediate, Verified 06/30/24 08:38) HIVES azithromycin [From ZITHROMAX] Allergy (Intermediate, Verified 06/30/24 08:38) HIVES Penicillins [PCN] Allergy (Intermediate, Verified 06/30/24 08:38) HIVES sulfamethoxazole [From BACTRIM] Allergy (Intermediate, Verified 06/30/24 08:38) HIVES trimethoprim [From BACTRIM] Allergy (Intermediate, Verified 06/30/24 08:38) HIVES amoxicillin Allergy (Unknown, Verified 06/30/24 08:38) unknown penicillamine Allergy (Unknown, Verified 06/30/24 08:38) Unknown Sulfa (Sulfonamide Antibiotics) Allergy (Unknown, Verified 06/30/24 08:38) Swelling fluconazole Allergy (Verified 06/30/24 08:38) swelling in the face lips get blisters fluconazole Adverse Reaction (Uncoded 06/30/24 08:38) face swells Do you need a note to return to daycare/school/sports/work: No HPI HPI Comments History of Present Illness Details History - The patient is a 49-year-old female presenting with a severe headache, which began two days ago and has not responded to 1g Tylenol, 800mg Motrin, or Excedrin. Patient denies phonophobia or photophobia - She experiences dizziness, nearly fainting in the shower, but reports nausea with no vomiting and no changes in vision. - The patient's medical background includes previous episodes of similar headaches, with partial relief from meloxicam. - Nasal congestion is present; however, she has tested negative for COVID-19 and has not yet been tested for flu. 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 Physical Exam General: Cooperative, healthy appearing, comfortable and no acute distress Orientation/consciousness: Patient oriented x3 Limitations: No limitations Head: Normal to inspection Ears: Hearing grossly normal bilaterally, external ears normal, TM's normal bilaterally, some fluid present Nose: Normal external nose present, Normal nares present, nasal discharge present Face and sinus: Normal facial exam and Yes sinuses nontender Mouth: Normal oral and palatal mucosa present and moist mucous membranes Throat: Yes tonsils normal, Yes uvula midline. Posterior oropharynx erythema Eyes: Appearance normal, both eyes and all related structures Neck: Normal visual inspection Respiratory: Clear to auscultation bilaterally. Normal respiratory effort, able to speak in complete sentences, Actively coughing, no respiratory distress, not tachypneic, no tripod positioning and no use of accessory muscles Cardiovascular: Regular rate and rhythm. 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 As requested, Meloxicam RX to address her headache, based on prior experience. Ondansetron is prescribed for nausea management, if required. The results of the testing will be communicated by the end of the day. A work note has been issued to accommodate absence from work. Patient was informed and verbally consented to the use of an ambient scribe for clinic note documentation during this visit Orders: Orders SARS-CoV2/FLU/RSV Today J06.9 - Acute upper respiratory infection, unspecified Medications: New ondansetron 4 mg PO Q8H PRN 10 tabs 0RF nausea and vomiting meloxicam 7.5 mg PO DAILY 10 tabs 0RF Coding Level of Care Code Est Pt Level 3 (66350) Diagnoses URI, acute J06.9
== END 2024-06-30 08:50 | disposition home or self-care (01) ==
PROVIDERS: PCP Internal Medicine; Visit Provider Physician Assistant
DX: J06.9 Acute upper respiratory infection, unspecified (principal)

== ENCOUNTER 2024-06-30 08:13 | Outpatient (REF) | payer OTHER, SELFPAY ==
[2024-06-30 11:38] LABS: Influenza A PCR NEGATIVE (Negative); Influenza B PCR NEGATIVE (Negative); Resp Syncy Virus RNA Qual PCR NEGATIVE (Negative); SARS COV2 PCR INHOUSE NEGATIVE (Negative)
== END 2024-06-30 08:14 | disposition home or self-care (01) ==
LOC: HO.LAB 08:13
PROVIDERS: PCP Internal Medicine; Visit Provider Physician Assistant
DX: J06.9 Acute upper respiratory infection, unspecified (principal); R51.9 Headache, unspecified; R11.0 Nausea; R42 Dizziness and giddiness
CPT/HCPCS: 0241U

== ENCOUNTER 2024-07-11 08:04 | Outpatient (REF) | payer OTHER, SELFPAY | END 2024-07-11 08:05 | disposition home or self-care (01) | LOC: HO.MAMMO 08:04 | PROVIDERS: PCP Internal Medicine; Visit Provider Internal Medicine | DX: Z12.31 Encounter for screening mammogram for malignant neoplasm of breast (principal) | CPT/HCPCS: 77063; 77067 ==

== ENCOUNTER → 2024-07-11 08:30 | Outpatient (BNV) | payer OTHER, SELFPAY | PROVIDERS: PCP Internal Medicine; Visit Provider Internal Medicine | DX: Z12.31 Encounter for screening mammogram for malignant neoplasm of breast (principal) | CPT/HCPCS: 77063; 77067 ==

== ENCOUNTER 2024-09-08 20:08 | Emergency (ER) | payer OTHER, SELFPAY ==
--- NOTE | 2024-09-08 | ECG_ITS ---
Test Reason : CP Blood Pressure : */* mmHG Vent. Rate : 75 BPM Atrial Rate : 75 BPM P-R Int : 152 ms QRS Dur : 74 ms QT Int : 378 ms P-R-T Axes : 45 3 25 degrees QTcB Int : 422 ms Normal sinus rhythm Cannot rule out Anterior infarct , age undetermined Abnormal ECG No previous ECGs available Referred By: Generic ED Physician Electronically Signed By: Gus Escobar
--- NOTE | ~2024-09-08 | XR_ITS ---
CLINICAL HISTORY: cp 1 view chest x-ray Comparison: None Findings: No consolidation or effusion. Normal size heart. No acute fracture. IMPRESSION: 1. No acute findings. This document has been electronically signed by: Keenan Wood MD on 09/09/2024 00:54:11
--- NOTE | ~2024-09-08 | US_ITS ---
CLINICAL HISTORY: upper abd pain US abdomen limited Comparison: None Findings: The visualized pancreas is normal. The liver is normal in size and echotexture. There is no intrahepatic bile duct dilatation. The common duct is 6 mm in diameter. The gallbladder contains stones. There is no gallbladder wall thickening. The main portal vein is antegrade. The right kidney is 10.4 cm in length. No ascites. IMPRESSION: Cholelithiasis without evidence of cholecystitis. This document has been electronically signed by: Keenan Wood MD on 09/09/2024 00:58:29
[2024-09-08 20:49] VITALS: BP 113/83; PULSE 61; RESP 18; TEMP 36.7; O2SAT 100; BMI 37.5
[2024-09-08] MEDS: Ondansetron ODT 4 MG TAB.RAPDIS TRANSLINGU (20:56)
[2024-09-08 21:08] LABS: MANUAL DIFF FLAG NO
[2024-09-08 21:10] LABS: Basophils Absolute Auto 0.1 X10*3/uL (0.0-0.2); Basophils Percent Auto 0.7 % (0-2); Eosinophils Absolute Auto 0.2 X10*3/uL (0.0-0.4); Eosinophils Percent Auto 1.5 % (0-4); Hematocrit 35.2 % (37.0-47.0); Hemoglobin 11.8 g/dl (12.0-16.0); Imm Gran Abs Auto 0.04 X10*3/uL (0.00-0.03); Imm Gran Pct Auto 0.4 % (0.0-0.4); Lymphocytes Absolute Auto 2.7 X10*3/uL (1.2-4.9); Lymphocytes Percent Auto 25.2 % (20-40); Mean Corpuscular HGB Conc 33.5 g/dl (31.0-35.0); Mean Corpuscular Hemoglobin 30.4 pg (27.0-33.0); Mean Corpuscular Volume 90.7 fL (80.0-98.0); Mean Platelet Volume 9.9 fL (9.4-12.3); Monocytes Absolute Auto 0.8 X10*3/uL (0.1-1.2); Neutrophils Percent Auto 65.2 % (45-73); Platelet Count 342 X10*3/uL (160-400); Red Blood Count 3.88 X10*6/uL (4.20-5.50); Red Cell Distribution Width 14.5 % (11.0-16.0); White Blood Count 10.7 X10*3/uL (4.8-10.8)
[2024-09-08 21:25] LABS: Alanine Aminotransferase 14 U/L (0-31); Albumin Level 4.1 g/dL (3.5-5.0); Alkaline Phosphatase 76 U/L (39-117); Anion Gap 12 (12-20); Aspartate Amino Transferase 18 U/L (5-31); Bilirubin Total 0.2 mg/dL (0.0-1.0); Blood Urea Nitrogen 13 mg/dL (9-16); Carbon Dioxide 24 mmol/L (22-29); Chloride 107 mmol/L (96-108); Creatinine Clr Calc Pharmacy 114.5; Estimated Glomerular Filt Rate > 60; Glucose Random 118 mg/dL (60-115); Potassium 4.3 mmol/L (3.3-5.1); Sodium 139 mmol/L (135-145); Total Protein 7.6 g/dL (6.5-8.0)
[2024-09-08 21:33] LABS: Troponin-I High Sensitivity < 2.7 ng/L (<3.5-17.0)
[2024-09-08 21:45] LABS: Influenza A PCR NEGATIVE (Negative); Influenza B PCR NEGATIVE (Negative); Resp Syncy Virus RNA Qual PCR NEGATIVE (Negative); SARS COV2 PCR INHOUSE NEGATIVE (Negative)
[2024-09-08 22:18] VITALS: BP 176/74; PULSE 68; RESP 16; TEMP 36.8; O2SAT 100
[2024-09-08 23:35] LABS: Troponin-I High Sensitivity < 2.7 ng/L (<3.5-17.0)
[2024-09-08] MEDS: Famotidine/PF 20 MG/2 ML VIAL IVPUSH (23:46)
[2024-09-08] MEDS: ondansetron HCL 4 MG/2 ML VIAL IVPUSH (23:46)
[2024-09-08] MEDS: 0.9 % Sodium Chloride 1,000 ML 999 ML IV (23:46)
--- NOTE | 2024-09-08 23:47 | ED.CHESTPAIN ---
HPI - Chest Pain General Chief Complaint: Chest Pain Stated Complaint: Chest pain/Abdominal pain Time Seen by Provider: 09/08/24 23:40 Source: patient and family Mode of arrival: ambulatory Limitations: no limitations History of Present Illness ED Provider: DR. Damon HPI narrative: 49-year-old female came for evaluation upper abdominal pain started since 14:00 after eating pizza for lunch, pain has been constant since 14:00 localized to the epigastric area with burning sensation to chest, pain is associated with nausea and vomiting, patient also been having dizziness and blurry vision, no weakness, no numbness, no speech abnormality, no headache. no intra-abdominal surgery history, no fever, no chills, normal bowel movement in the morning with no blood in the stool. Related Data Home Medications ?Medication ?Instructions ?Recorded ?Confirmed tylenol PO 10/31/21 01/29/24 doxylamine succinate 25 mg tablet 25 mg PO BEDTIME PRN 01/03/22 01/29/24 (Unisom (doxylamine)) esomeprazole magnesium 20 mg 20 mg PO DAILY 01/03/22 01/29/24 capsule,delayed release (Nexium) Previous Rx's ?Medication ?Instructions ?Recorded hydrocortisone acetate 30 mg 30 mg NC BID #12 ea 02/05/24 rectal suppository (Proctocort) valacyclovir 1 gram tablet 1,000 mg PO DAILY #90 tabs 02/05/24 meloxicam 7.5 mg tablet 7.5 mg PO DAILY #10 tabs 06/30/24 ondansetron 4 mg disintegrating 4 mg PO Q8H PRN nausea and 06/30/24 tablet vomiting #10 tabs oxycodone 5 mg tablet 5 mg PO Q8H PRN pain #5 tabs 09/09/24 Allergies Allergy/AdvReac Type Severity Reaction Status Date / Time aloe [ALOE] Allergy Intermediate HIVES Verified 09/08/24 20:50 azithromycin [From ZITHROMAX] Allergy Intermediate HIVES Verified 09/08/24 20:50 Penicillins [PCN] Allergy Intermediate HIVES Verified 09/08/24 20:50 sulfamethoxazole Allergy Intermediate HIVES Verified 09/08/24 20:50 [From BACTRIM] trimethoprim [From BACTRIM] Allergy Intermediate HIVES Verified 09/08/24 20:50 amoxicillin Allergy Unknown unknown Verified 09/08/24 20:50 penicillamine Allergy Unknown Unknown Verified 09/08/24 20:50 Sulfa (Sulfonamide Allergy Unknown Swelling Verified 09/08/24 20:50 Antibiotics) fluconazole Allergy swelling Verified 09/08/24 20:50 in the face lips get blisters fluconazole AdvReac face swells Uncoded 09/08/24 20:50 Review of Systems Review of Systems: All other systems are reviewed and are negative Constitutional: Reports as per HPI and Reports no additional constitutional complaints Eyes: Reports as per HPI and Reports no additional eye complaints Reports system reviewed and no additional complaints, except as documented Cardiovascular: Reports as per HPI and Reports no additional cardiovascular complaints Respiratory: Reports as per HPI and Reports no additional respiratory complaints Gastrointestinal: Reports as per HPI and Reports no additional gastrointestinal complaints Genitourinary: Reports no additional female genitourinary complaints Musculoskeletal: Reports no additional musculoskeletal complaints Skin/Breast: Reports system reviewed and no additional complaints, except as docu Psychiatric: Reports no additional psychiatric complaints Endocrine: Reports no additional endocrine complaints Hematologic/Lymphatic: Reports no additional hematologic/lymphatic complaints Allergic/Immunologic: Reports no additional allergic/immunologic complaints Reports system reviewed and no additional complaints, except as documented and Reports Abnormal speech present FOR[facility]LY [facility] Past Medical History Medical History Annual physical exam Depression Surgical History No pertinent past surgical history Family History Family History Father AIDS Mother Lung cancer Social History Social History 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, 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 Tobacco Use Status: Never used Tobacco e-Cigarette/Vaping Use: Former Use Advance Directives: No Advance Directives Information Provided: No Do you have a plan to hurt others: No Plan service: No Current occupational status: employed Cognitive needs: No Hearing needs: No Vision needs: Yes Physical Exam Vital Signs: Vital Signs: Last Vital Signs Temp 98.3 F 09/08/24 22:18 Pulse 65 09/08/24 23:48 Resp 18 09/08/24 23:57 BP 159/74 H 09/08/24 23:48 Pulse Ox 100 09/08/24 22:18 O2 Del Method Room Air 09/08/24 22:18 BMI result Body Mass Index 37.5 Vital signs have been reviewed and appear to be correct. Blood pressure elevated. Heart rate normal. Respiratory rate normal. Temperature normal. Oxygen saturation normal. Appearance: Alert. Oriented X3. No acute distress. Head: Normal external exam. Normocephalic. Atraumatic. No Dietz signs noted. No raccoon eyes noted General: appearance normal, both eyes and all related structures Visual Ewing: normal visual ewing by confrontation, visual acuity 20/15 bilaterally with glasses Alignment and Position: alignment normal and position normal Periorbital: periorbital findings normal Eyelids: Yes eyelids normal Conjunctivae: conjunctivae normal Sclerae: sclerae normal Corneas: corneas normal Pupils: Equal, round and reactive pupils present and Pupil accommodation reflex normal EOM: EOM abnormal (Limited abduction of right eye) and No Nystagmus present ENT: TM's Normal. Pharynx normal. Uvula midline. Moist mucous membranes. No trismus noted. No drooling noted. No muffled voice noted. Neck: Normal inspection. Neck supple. FROM. No adenopathy. Thyroid Normal. No meningeal signs. No neck mass noted. CVS: Normal heart rate and rhythm. Heart sound normal. No murmurs noted. Pulses normal throughout. Respiratory: No respiratory distress. Painless inspiration. Breath sounds normal. No wheezes/rales/rhonchi noted. Chest nontender. No accessory muscle usage noted or decreased air movement noted. Abdomen: Soft , epigastric tenderness, no rebound tenderness, no guarding. Bowel sounds normal in all 4 quadrants. No distention noted. No organomegaly noted. No visible injury noted. Back: No CVA tenderness. Full range of motion noted. Skin: Skin warm and dry. Normal skin color. Normal skin turgor. No rashes/lesions/lacerations noted. Extremities: No lower extremity edema. Extremities exhibit normal range of motion. Extremities nontender. Neuro: Mental status: Normal attention, orientation, memory, and affect. Cranial nerves: Pupils are equal, round and reactive to light, EOMI, visual ewing are fall, face is symmetric, facial sensations are normal. Motor examination normal muscle tone, strength to 4 extremities. DTR are +2, planter's are flexor. Sensory exam; normal coordination, no ataxia, gait stable. Cerebellar exam: [id number] and [id number] is normal. Extrapyramidal system: No tremors, no rigidity with normal facial expressions. Pronator drift not present NIH Stroke Scale Time: 00:48 Level of Consciousness: Alert Level of Consciousness Questions: Answers both questions correctly Level of Consciousness Commands: Performs both tasks correctly Best Gaze: Normal Visual: No visual loss Facial Palsy: Normal Motor Arm (Right): No drift Motor Arm (Left): No drift Motor Leg (Right): No drift Motor Leg (Left): No drift Limb Ataxia: Absent Sensory: Normal Best Language: No aphasia Dysarthia: Normal Extinction and Inattention: No abnormality Score: 0 Course Reevaluation(s) Reevaluation #1: patient feels much better now, report 0-1/10 pain, no nausea, no vomiting, able to tolerate p.o. intake. No blurry vision with normal visual acuity. Will discharge home, patient was instructed to avoid eating greasy or spicy food and follow-up with surgery as an outpatient. Time: 01:22 Medications Administered Discontinued Medications Generic Name Dose Route Start Last Admin Trade Name Freq PRN Reason Stop Dose Admin Famotidine 20 mg 09/08/24 23:34 09/08/24 23:46 Famotidine/Pf 20 Mg/2 Ml Vial IVPUSH 09/08/24 23:35 20 mg ONCE ONE Administration Sodium Chloride 1,000 mls @ 999 mls/hr 09/08/24 23:45 09/08/24 23:46 Ns IV 09/09/24 00:45 999 mls/hr .Q1H1M JAMES Administration Ketorolac Tromethamine 15 mg 09/08/24 23:45 09/08/24 23:56 Ketorolac Tromethamine 15 Mg/Ml Vial IVPUSH 09/08/24 23:46 15 mg ONCE ONE Administration Morphine Sulfate 1 mg 09/08/24 23:45 09/08/24 23:57 Morphine Sulfate 2 Mg/Ml Cartridge IVPUSH 09/08/24 23:46 1 mg ONCE ONE Administration Protocol Ondansetron HCl 4 mg 09/08/24 20:24 09/08/24 20:56 Ondansetron Odt 4 Mg Tab.Rapdis TRANSLINGU 09/08/24 20:25 4 mg ONCE ONE Administration Ondansetron HCl 4 mg 09/08/24 23:39 09/08/24 23:46 Ondansetron Hcl 4 Mg/2 Ml Vial IVPUSH 09/08/24 23:40 4 mg ONCE ONE Administration Medical Decision Making Differential Diagnosis Differential Diagnoses: The differential diagnosis associated with the presentation includes ( cholecystitis, cholelithiasis, gastritis, pancreatitis, ACS, pneumonia, pneumothorax, pleural effusion, UTI, ) Admission/Observation Consideration of admission/observation: Escalation of care including admission/observation considered Lab Data MDM Lab Attestation statement: I reviewed the patient's lab results. 09/08/24 21:04 09/08/24 21:04 Labs: Lab Results 09/08/24 09/08/24 09/08/24 Range/Units 21:03 21:04 23:09 WBC 10.7 (4.8-10.8) X10*3/uL RBC 3.88 L (4.20-5.50) X10*6/uL Hgb 11.8 L (12.0-16.0) g/dl Hct 35.2 L (37.0-47.0) % MCV 90.7 (80.0-98.0) fL MCH 30.4 (27.0-33.0) pg MCHC 33.5 (31.0-35.0) g/dl RDW 14.5 (11.0-16.0) % Plt Count 342 (160-400) X10*3/uL MPV 9.9 (9.4-12.3) fL Immature Gran % (Auto) 0.4 (0.0-0.4) % Neut % (Auto) 65.2 (45-73) % Lymph % (Auto) 25.2 (20-40) % Douglas % (Auto) 7.0 (2-11) % Eos % (Auto) 1.5 (0-4) % Baso % (Auto) 0.7 (0-2) % Lymph # (Auto) 2.7 (1.2-4.9) X10*3/uL Douglas # (Auto) 0.8 (0.1-1.2) X10*3/uL Eos # (Auto) 0.2 (0.0-0.4) X10*3/uL Baso # (Auto) 0.1 (0.0-0.2) X10*3/uL Abs Immat Gran (auto) 0.04 H (0.00-0.03) X10*3/uL Absolute Neuts (auto) 7.0 (2.0-8.3) x10*3/uL Absolute Nucleated RBC 0.000 (0.0-0.012) X10*3/uL Nucleated RBC % (auto) 0.0 (0.0-0.2) /100WBC Sodium 139 (135-145) mmol/L Potassium 4.3 (3.3-5.1) mmol/L Chloride 107 (96-108) mmol/L Carbon Dioxide 24 (22-29) mmol/L Anion Gap 12 (12-20) BUN 13 (9-16) mg/dL Creatinine 0.72 (0.5-1.4) mg/dL Estim Creat Clear Calc 114.5 Estimated GFR > 60 Random Glucose 118 H (60-115) mg/dL Calcium 9.0 (8.4-10.2) mg/dL Total Bilirubin 0.2 (0.0-1.0) mg/dL AST 18 (5-31) U/L ALT 14 (0-31) U/L Alkaline Phosphatase 76 (39-117) U/L Troponin I High Sens < 2.7 < 2.7 (<3.5-17.0) ng/L Total Protein 7.6 (6.5-8.0) g/dL Albumin 4.1 (3.5-5.0) g/dL Beta HCG, Quant < 2 mIU/mL Influenza Type A (PCR) NEGATIVE (Negative) Influenza Type B (PCR) NEGATIVE (Negative) RSV RNA Qual (PCR) NEGATIVE (Negative) SARS-CoV-2 RNA (RT-PCR) NEGATIVE (Negative) Independent Interpretation I performed an independent interpretation of an: Plain X-Ray ( Chest: No acute findings.) and Ultrasound ( abdominal:Cholelithiasis without evidence of cholecystitis) Radiology Impression Discussion of test interpretation with radiology: I have reviewed the radiologist's reading. Discharge Plan Discharge Clinical Impression: Cholelithiasis, Biliary colic, Atypical chest pain Patient Disposition: Home, Self-Care Instructions: Gallstones (ED) Prescriptions: New oxycodone 5 mg tablet 5 mg PO Q8H PRN (Reason: pain) Qty: 5 0RF Rx Instructions: Partial Fill upon patient request. No Action valacyclovir 1 gram tablet 1,000 mg PO DAILY Qty: 90 3RF hydrocortisone acetate [Proctocort] 30 mg suppository 30 mg NC BID Qty: 12 2RF tylenol 500 mg PO esomeprazole magnesium [Nexium] 20 mg capsule,delayed release(DR/EC) 20 mg PO DAILY Unisom (doxylamine) 25 mg tablet 25 mg PO BEDTIME PRN ondansetron 4 mg tablet,disintegrating 4 mg PO Q8H PRN (Reason: nausea and vomiting) Qty: 10 0RF meloxicam 7.5 mg tablet 7.5 mg PO DAILY Qty: 10 0RF Referrals: Milena Moy MD [Primary Care Provider] - Dakota León MD [Physician] - Print Language: Urdu
[2024-09-08 23:48] VITALS: BP 159/74; PULSE 65
[2024-09-08] MEDS: Ketorolac Tromethamine 15 MG/ML VIAL IVPUSH (23:56)
[2024-09-08 23:57] VITALS: RESP 18
[2024-09-08] MEDS: Morphine Sulfate 2 MG/ML CARTRIDGE 1 MG IVPUSH (23:57)
[2024-09-09 00:07] LABS: HCG Quantitative < 2 mIU/mL
[2024-09-09 00:27] VITALS: RESP 18
[2024-09-09 01:47] LABS: Lipase 28 U/L (8-78)
[2024-09-09 02:01] VITALS: BP 161/77; PULSE 70; RESP 16; TEMP 36.8; O2SAT 97
== END 2024-09-09 02:17 | disposition home or self-care (01) ==
PROVIDERS: Emergency Provider Emergency Medicine; PCP Internal Medicine
DX: K80.20 Calculus of gallbladder without cholecystitis without obstruction (principal); K80.50 Calculus of bile duct without cholangitis or cholecystitis without obstruction; R07.89 Other chest pain; R10.10 Upper abdominal pain, unspecified; R11.2 Nausea with vomiting, unspecified; Z03.818 Encounter for observation for suspected exposure to other biological agents ruled out
CPT/HCPCS: 0241U; 36415; 71045; 76705; 80053; 83690; 84484; 84702; 85025; 93005; 96361; 96374; 96375; 99285; J1885; J2270; J2405

== ENCOUNTER → 2024-09-08 20:12 | Outpatient (BNV) | payer OTHER, SELFPAY | PROVIDERS: Emergency Provider Emergency Medicine; PCP Internal Medicine; Visit Provider Internal Medicine Cardiovascular Disease | DX: R07.9 Chest pain, unspecified (principal); R94.31 Abnormal electrocardiogram [ECG] [EKG] | CPT/HCPCS: 93010 ==

== ENCOUNTER → 2024-09-08 23:41 | Outpatient (BNV) | payer OTHER, SELFPAY | PROVIDERS: Emergency Provider Emergency Medicine; PCP Internal Medicine; Visit Provider Radiology Diagnostic Radiology | DX: K80.20 Calculus of gallbladder without cholecystitis without obstruction (principal); R07.9 Chest pain, unspecified | CPT/HCPCS: 71045; 76705 ==

== ENCOUNTER 2024-09-16 08:34 | Outpatient (AMB) | payer OTHER, SELFPAY ==
--- NOTE | 2024-09-16 08:39 | MHC.OFFVIS ---
Intake Visit Reasons: Gallbladder problems Intake Note: Patient c/o abdominal pain. At first felt pain felt like heart burn. Was seen at ED on 09-09-2024. 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 Accompanied by: Daughter Allergies aloe [ALOE] Allergy (Intermediate, Verified 09/16/24 08:41) HIVES azithromycin [From ZITHROMAX] Allergy (Intermediate, Verified 09/16/24 08:41) HIVES Penicillins [PCN] Allergy (Intermediate, Verified 09/16/24 08:41) HIVES sulfamethoxazole [From BACTRIM] Allergy (Intermediate, Verified 09/16/24 08:41) HIVES trimethoprim [From BACTRIM] Allergy (Intermediate, Verified 09/16/24 08:41) HIVES amoxicillin Allergy (Unknown, Verified 09/16/24 08:41) unknown penicillamine Allergy (Unknown, Verified 09/16/24 08:41) Unknown Sulfa (Sulfonamide Antibiotics) Allergy (Unknown, Verified 09/16/24 08:41) Swelling fluconazole Allergy (Verified 09/16/24 08:41) swelling in the face lips get blisters fluconazole Adverse Reaction (Uncoded 09/16/24 08:41) face swells HPI Comments Details: Patient was with the daughter. Patient was had several episodes of epigastric/right upper quadrant pain radiating under her back. She recently was seen in the emergency department for this which workup included sonogram demonstrates cholelithiasis. Because of persistence of episodes and symptoms, patient was like to have this addressed. She otherwise tolerating her diet. She has regular bowel habits. Never been jaundiced before. Chart was reviewed and patient evaluated. No prior abdominal surgeries. 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 No evidence of any guarding, rebound, or rigidity. Assessment & Plan Assessment & Plan (1) Recurrent biliary colic: Code(s): K80.50 - Calculus of bile duct without cholangitis or cholecystitis without obstruction Category: Surgical (2) Cholelithiasis: Code(s): K80.20 - Calculus of gallbladder without cholecystitis without obstruction Category: Surgical Plan Risks, benefits, alternatives laparoscopic possible open cholecystectomy reviewed with the patient and included but not limited to bleeding, infection, recurrence of symptoms, numbness, pain, scarring, bowel or bile duct injury or leak and the patient wishes to proceed. All questions answered. Arrangements will be made for this on a day which is convenient for her. Coding Level of Care Code New Pt Level 5 (62116) Diagnoses Recurrent biliary colic K80.50 Cholelithiasis K80.20
== END 2024-09-16 08:46 | disposition home or self-care (01) ==
LOC: HO.HGS 08:35
PROVIDERS: PCP Internal Medicine; Visit Provider Surgery
DX: K80.50 Calculus of bile duct without cholangitis or cholecystitis without obstruction (principal); K80.20 Calculus of gallbladder without cholecystitis without obstruction
CPT/HCPCS: 99204

== ENCOUNTER 2024-10-08 08:21 | Day surgery (SDC) | payer OTHER, SELFPAY ==
[2024-10-06 11:37] VITALS: BMI 36.1
--- NOTE | 2024-10-07 09:41 | MHC.SHP ---
Pre-Procedural Eval Section A - 24 Hr Update-Section A only Date of Service: 10/08/24 The patient is an INPATIENT: No Changes since office visit: No Cold of Flu in the past 2 weeks, No New Medical Problems, No Changes in Medication and No Patient answered all questions Section B - Complete if H&P > 30 days Chief Complaint: Calculus of bile duct without cholangitis or jaskaran Allergies: Allergies Allergy/AdvReac Type Severity Reaction Status Date / Time aloe [ALOE] Allergy Intermediate Hives Verified 10/06/24 11:33 amoxicillin Allergy Intermediate Hives Verified 10/06/24 11:33 azithromycin [From ZITHROMAX] Allergy Intermediate Hives Verified 10/06/24 11:33 fluconazole Allergy Intermediate swelling Verified 10/06/24 11:33 in the face lips get blisters Penicillins [PCN] Allergy Intermediate Hives Verified 10/06/24 11:33 Sulfa (Sulfonamide Allergy Intermediate Hives Verified 10/06/24 11:33 Antibiotics) sulfamethoxazole Allergy Intermediate Hives Verified 10/06/24 11:33 [From BACTRIM] trimethoprim [From BACTRIM] Allergy Intermediate Hives Verified 10/06/24 11:33 Review of Systems Sugical H&P ROS: Negative: Constitution, Cardiovascular, Respiratory, Neurological, Psychiatric, Hem-Onc, Allergic/Immunologic, Gastrointestinal, Genitourinary, Musculoskeletal, Integumentary, Endocrine and Eyes/Ears/Nose/Throat Exam Surgical H&P Exam: Normal: HEENT, Normal: Heart, Normal: Lungs, Normal: Extremities, Normal: Abdomen, Normal: Skin and Normal: Neurological Plan I have reviewed the history and physical and performed a pertinent physical examination on my patient. No changes have occurred unless specified. Time Spent With Patient Time: Total time managing care of this patient today ____ minutes.
[2024-10-08] VITALS (8 sets, daily range): BP systolic 129–160; BP diastolic 60–82; PULSE 68–80; RESP 15–16; TEMP 36.2–37.1; O2SAT 95–99; BMI 37.6
[2024-10-08 08:57] LABS: UPreg QC Valid YES; Urine Pregnancy NEGATIVE (NEGATIVE)
[2024-10-08] MEDS: Lactated Ringers 1,000 ML 100 ML IVCONT (09:07)
--- NOTE | 2024-10-08 11:13 | HO.ANESPROP2 ---
Documented by User: Carol Gallegos NP 10/07/24 11:14 HPI - Anesthesia Eval Consult details Narrative: 49yo F for Cholecystectomy Laparoscopic, possible open PMFSH Active Problems Active Problems: All Active Problems Cholelithiasis (Acute) Recurrent biliary colic (Acute) URI, acute (Acute) Mixed incontinence urge and stress (Acute) BMI 36.0-36.9,adult (Acute) Anxiety and depression (Acute) Urinary bladder incontinence (Acute) Rash (Acute) Screening examination for infectious disease (Acute) Vitamin D deficiency (Acute) Foot pain, left (Acute) Normal pelvic exam (Acute) Tired (Acute) Feeling sick (Acute) PND (post-nasal drip) (Acute) Cough (Acute) Annual physical exam (Acute) Frequent headaches (Acute) Urinary tract infection (Acute) Past Medical History Medical History (Updated 10/08/24 @ 08:33 by Bushra Payne RN) GERD (gastroesophageal reflux disease) Torn ligament Frequent headaches Depression Family History Family History Father AIDS Mother Lung cancer Surgical History Surgical History (Updated 10/08/24 @ 08:35 by Bushra Payne RN) Hx of wisdom tooth extraction Hx of tonsillectomy Social History Social History 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, 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 Tobacco Use Status: Never used Tobacco e-Cigarette/Vaping Use: Never Used Use of substances other than those prescribed or required for medical reasons: No Are you DNR?: No Advance Directives: No Advance Directives Information Provided: Yes service: No Current occupational status: employed Cognitive needs: No Hearing needs: No Vision needs: Yes Meds Allergies Allergy/AdvReac Type Severity Reaction Status Date / Time aloe [ALOE] Allergy Intermediate Hives Verified 10/08/24 08:35 amoxicillin Allergy Intermediate Hives Verified 10/08/24 08:35 azithromycin [From ZITHROMAX] Allergy Intermediate Hives Verified 10/08/24 08:35 fluconazole Allergy Intermediate swelling Verified 10/08/24 08:35 in the face lips get blisters Penicillins [PCN] Allergy Intermediate Hives Verified 10/08/24 08:35 Sulfa (Sulfonamide Allergy Intermediate Hives Verified 10/08/24 08:35 Antibiotics) sulfamethoxazole Allergy Intermediate Hives Verified 10/08/24 08:35 [From BACTRIM] trimethoprim [From BACTRIM] Allergy Intermediate Hives Verified 10/08/24 08:35 Home Medications ?Medication ?Instructions ?Recorded ?Confirmed ?Last Taken ?Type tylenol PO Q4-6H PRN Pain, Mild 10/31/21 09/16/24 Unknown History doxylamine succinate 25 mg tablet 25 mg PO BEDTIME PRN Insomnia 01/03/22 09/16/24 Unknown History (Unisom (doxylamine)) esomeprazole magnesium 20 mg 20 mg PO DAILY 01/03/22 09/16/24 Unknown History capsule,delayed release (Nexium) Exam Height,Weight and Vital Signs: Height 5 ft 5 in Weight 98.43 kg Pertinent Lab Results Pertinent Lab Results: Laboratory Tests 09/08/24 21:04 WBC 10.7 Hgb 11.8 L Hct 35.2 L Plt Count 342 Sodium 139 Potassium 4.3 Chloride 107 Carbon Dioxide 24 BUN 13 Creatinine 0.72 Narrative Narrative: EKG 08/2024 Vent. Rate : 75 BPM Atrial Rate : 75 BPM P-R Int : 152 ms QRS Dur : 74 ms QT Int : 378 ms P-R-T Axes : 45 3 25 degrees QTcB Int : 422 ms Normal sinus rhythm Cannot rule out Anterior infarct , age undetermined Abnormal ECG No previous ECGs available Assessment and Plan Assessment Anesthesia Assessment: Chart Reviewed Documented by User: Bushra Rice DO 10/08/24 11:14 [facility] Past Medical History Medical History (Updated 10/08/24 @ 08:33 by Bushra Payne RN) GERD (gastroesophageal reflux disease) Torn ligament Frequent headaches Depression Family History Family History Father AIDS Mother Lung cancer Family history of problems with anesthesia: No Surgical History Surgical History (Updated 10/08/24 @ 08:35 by Bushra Payne, RN) Hx of wisdom tooth extraction Hx of tonsillectomy History of Problems with Anesthesia: No Social History Social History 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, 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 Tobacco Use Status: Never used Tobacco e-Cigarette/Vaping Use: Never Used Use of substances other than those prescribed or required for medical reasons: No Are you DNR?: No Advance Directives: No Advance Directives Information Provided: Yes service: No Current occupational status: employed Cognitive needs: No Hearing needs: No Vision needs: Yes Meds Allergies Allergy/AdvReac Type Severity Reaction Status Date / Time aloe [ALOE] Allergy Intermediate Hives Verified 10/08/24 08:35 amoxicillin Allergy Intermediate Hives Verified 10/08/24 08:35 azithromycin [From ZITHROMAX] Allergy Intermediate Hives Verified 10/08/24 08:35 fluconazole Allergy Intermediate swelling Verified 10/08/24 08:35 in the face lips get blisters Penicillins [PCN] Allergy Intermediate Hives Verified 10/08/24 08:35 Sulfa (Sulfonamide Allergy Intermediate Hives Verified 10/08/24 08:35 Antibiotics) sulfamethoxazole Allergy Intermediate Hives Verified 10/08/24 08:35 [From BACTRIM] trimethoprim [From BACTRIM] Allergy Intermediate Hives Verified 10/08/24 08:35 Home Medications ?Medication ?Instructions ?Recorded ?Confirmed ?Last Taken ?Type tylenol PO Q4-6H PRN Pain, Mild 10/31/21 09/16/24 Unknown History doxylamine succinate 25 mg tablet 25 mg PO BEDTIME PRN Insomnia 01/03/22 09/16/24 Unknown History (Unisom (doxylamine)) esomeprazole magnesium 20 mg 20 mg PO DAILY 01/03/22 09/16/24 Unknown History capsule,delayed release (Nexium) Exam Exam Date and Time: 10/08/24 1112 Height,Weight and Vital Signs: Height 5 ft 5 in Weight 98.43 kg Height 5 ft 5 in Weight 102.4 kg Vital Signs Temperature 98.7 F 10/08/24 08:50 Pulse Rate 80 10/08/24 08:50 Respiratory Rate 15 10/08/24 08:50 Blood Pressure 151/82 H 10/08/24 08:50 Pulse Oximetry 97 10/08/24 08:50 Oxygen Delivery Method Room Air 10/08/24 08:50 Temperature 98.7 F 10/08/24 08:50 Pulse Rate 80 10/08/24 08:50 Respiratory Rate 15 10/08/24 08:50 Blood Pressure 151/82 H 10/08/24 08:50 Pulse Oximetry 97 10/08/24 08:50 Oxygen Delivery Method Room Air 10/08/24 08:50 Airway Mallampati Class: II TM Dist: >3cm Neck ROM: Full Loose/Missing/Broken Teeth: No (patient denies any loose or broken teeth) Heart: S1S2 Lungs: CTAB Assessment and Plan Assessment Anesthesia Assessment: Anesthesia Plan Discussed and Chart Reviewed Final Anesthetic Review Family History of Problems with Anesthesia: No History of Problems with Anesthesia: No NPO: Yes ASA Class: II Final Preanesthetic Review: No Changes in Pt Med Stat, Meds/Allgs Chart Reviewed, Consent Obtained/Reviewed and Anes Risks/Benef Reviewed Patient Risk: Low Procedure Risk: Intermediate Anesthetic Plan Anesthetic Plan: GA and Agree w/ Assess. and Plan Disposition: Standard PACU
--- NOTE | 2024-10-08 12:28 | P.OP_ITS ---
Operative Note Operative Note Date of Service: 10/08/24 Narrative: Preoperative diagnosis: [] Symptomatic gallbladder Postop diagnosis: [] The same Procedure [] laparoscopic cholecystectomy Surgeon: [] Madhav Material Inspector: [] Carole Type of Anesthesia: [] General Indication for surgery: [] Gallbladder with omental adhesions to it. Moderately intrahepatic gallbladder. Corpulent abdomen Findings: [] Patient brought to the operating room, placed on operative table supine position, after an adequate level of general anesthesia was induced, the patient's abdomen was prepped and draped in usual sterile fashion. Using a supraumbilical curvilinear incision, Gong technique was used to insufflate abdominal cavity to 15 mm of CO2. Upper midline and right subcostal ports were placed under direct laparoscopic view, and the patient placed in reverse Trendelenburg position, and tilted to the left. Findings were as noted above. Gallbladder was grasped using laparoscopic graspers and retracted superiorly and laterally. Soft omental adhesions were swept off the gallbladder and the hilum was approached. Cystic artery and cystic duct were each identified, circumferentially skeletonized, traced directly into the gallbladder, and critical view obtained. Each was clipped proximally x2, distally x1, and transected . The gallbladder which was moderately intrahepatic was then cauterized from the gallbladder fossa using Bovie. Specimen placed in an Endo- Catch bag, a retrieved through the umbilical port. Abdominal cavity was copiously irrigated and secured hemostasis. All ports removed under direct laparoscopic view. Wounds were closed in the following manner; umbilical wound is fascia reapproximated using interrupted 0 Vicryl sutures. Skin wounds were closed using subcuticular 4-0 Vicryl sutures followed by Steri-Strips and sterile dressings. Wounds were infiltrated 0.5% Marcaine at completion. Sponge, needle, and instrument counts reported correct. Patient tolerated the procedure well and emerged from anesthesia stable condition. EBL minimal
[2024-10-08] MEDS: Ondansetron ODT 4 MG TAB.RAPDIS TRANSLINGU (13:55)
--- NOTE | 2024-10-08 13:56 | PC.NURSE ---
PATIENT GIVEN ZOFRAN 4 MG SL AT 1355 FOR COMPLAINT OF [address] GARRIDO AWARE THAT PATIENT GOT ZOFRAN 4 MG IV IN OR AT 1205.
--- NOTE | 2024-10-08 14:10 | PC.NURSE ---
PT STATES FEELING BETTER AFTER RECEIVING ZOFRAN SL. PATIENT BEING DC'D HOME.
== END 2024-10-08 14:12 | disposition home or self-care (01) ==
PROVIDERS: Nurse Practitioner; PCP Internal Medicine; Visit Provider Surgery
PROC: 0FT44ZZ Resection of Gallbladder, Percutaneous Endoscopic Approach (ICD-10-PCS; CPT 47562; principal; 2024-10-08 11:30)
DX: K80.10 Calculus of gallbladder with chronic cholecystitis without obstruction (principal); K82.8 Other specified diseases of gallbladder; E65 Localized adiposity; Q44.1 Other congenital malformations of gallbladder; K21.9 Gastro-esophageal reflux disease without esophagitis; R51.9 Headache, unspecified; F32.A Depression, unspecified; Z79.899 Other long term (current) drug therapy; Z88.0 Allergy status to penicillin; Z88.1 Allergy status to other antibiotic agents; Z88.2 Allergy status to sulfonamides; Z88.8 Allergy status to other drugs, medicaments and biological substances
CPT/HCPCS: 47562; 81025; 88304; J0131; J0736; J1100; J1885; J2003; J2250; J2405; J2704; J2795; J3010

== ENCOUNTER → 2024-10-08 08:21 | Outpatient (BNV) | payer OTHER, SELFPAY | PROVIDERS: PCP Internal Medicine; Visit Provider Surgery | DX: K80.10 Calculus of gallbladder with chronic cholecystitis without obstruction (principal) | CPT/HCPCS: 47562 ==

== ENCOUNTER 2024-10-19 10:27 | Outpatient (AMB) | payer OTHER, SELFPAY ==
--- NOTE | 2024-10-19 10:30 | A.OFFVIS_ITS ---
Vital Signs 10/19/24 10:39 Weight 226 lb BP 140/70 H Blood Pressure Location Rt brachial Position Sitting Pulse 80 Intake Visit Reasons: s/p lap jaskaran Intake Note: Patient here s/p laparoscopic cholecystectomy. Reports incision healing well. Patient c/o: no longer taking rx pain meds. Surgery: 10-08-2024 Brass Pickler Required: No Accompanied by: Self / Same As Patient Allergies aloe [ALOE] Allergy (Intermediate, Verified 10/19/24 10:40) Hives amoxicillin Allergy (Intermediate, Verified 10/19/24 10:40) Hives azithromycin [From ZITHROMAX] Allergy (Intermediate, Verified 10/19/24 10:40) Hives fluconazole Allergy (Intermediate, Verified 10/19/24 10:40) swelling in the face lips get blisters Penicillins [PCN] Allergy (Intermediate, Verified 10/19/24 10:40) Hives Sulfa (Sulfonamide Antibiotics) Allergy (Intermediate, Verified 10/19/24 10:40) Hives sulfamethoxazole [From BACTRIM] Allergy (Intermediate, Verified 10/19/24 10:40) Hives trimethoprim [From BACTRIM] Allergy (Intermediate, Verified 10/19/24 10:40) Hives HPI Comments Details: Patient is here for follow up s/p laparoscopic cholecystectomy on 10/08/24. She reports no concerns, she feels almost back to baseline. She reports occasional very mild incisional discomfort but otherwise feels well. Reports some irritation from the steri strips. No longer needing pain medication. Tolerating solid diet, moving bowels. Denies fevers, chills, diarrhea. 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 Tobacco Use Status: Never used Tobacco e-Cigarette/Vaping Use: Never Used service: No Current occupational status: employed Cognitive needs: No Hearing needs: No Vision needs: Yes Review of Systems Const Denies chills and Denies fever(s) ENT Denies dizziness Card Denies chest pain and Denies dyspnea Resp Denies dyspnea GI Reports as per HPI Skin/Breast Denies rash and Denies jaundice Neuro Denies dizziness Physical Exam Vital Signs: Last Vital Signs Pulse 80 10/19/24 10:39 BP 140/70 H 10/19/24 10:39 Const General: comfortable, no acute distress and alert Orientation/consciousness: patient oriented x3 Resp Effort & Inspection: normal respiratory effort and able to speak in complete sentences GI Other: steri strips removed, incisions well healing, small round abrasion of right lateral incision site, no erythema, no drainage Inspection: No distended Skin General skin exam: no rashes or lesions noted Neuro General: patient oriented x3 and moves all extremities Results Reviewed Results Reviewed: Gallbladder, cholecystectomy: Chronic cholecystitis; cholelithiasis; cholesterolosis Assessment & Plan Assessment & Plan (1) S/P laparoscopic cholecystectomy: Code(s): Z90.49 - Acquired absence of other specified parts of digestive tract Category: Surgical Plan S/p laparoscopic cholecystectomy on 10/08/24. Patient is doing well without any concerns. Abdomen is benign and incisions are clean and healing well. Pathology noted above and discussed with patient. Can return to work, educated no heavy lifting for the next two weeks and then can resume activities as tolerated. Can follow up as needed. Coding Level of Care Code Global (06131) Diagnoses S/P laparoscopic cholecystectomy Z90.49
[2024-10-19 10:39] VITALS: BP 140/70; PULSE 80
--- OUTSIDE RECORDS SUMMARY | 2024-10-19 12:15 | XMS_ITS | Clinical Summary ---
Author Organization [facility] ity Address [address] [place] [address] Care Team Providers Care Senior Planning Analyst Name Role Phone Unavailable Primary Care Provider Unavailabl e Social History Tobacco Use Types Packs/Day Years Used Date Smoking Tobacco: Never Assessed Comments Unknown Sex and Gender Information Value Date Recorded Sex Assigned at Not on file Legal Sex Female 4:08 AM EST Gender Identity Not on file Sexual Orientation Not on file Plan of Treatment Health Maintenance Due Date Last Done Comments Breast Cancer Screening 1977 DTaP,Tdap,and Td Vaccines (1 - Tdap) 01/14/1996 Hepatitis B Vaccines (1 of 3 - 19+ 3-dose series) 01/14/1996 Cervical Cancer Screening: P ap Smear 1998 COVID-19 Vaccine ( - 2023-2 5 season) 2024 Influenza Vaccine (Season Ended) 2025 HIB Vaccines Aged Out No longer eligi ble based on patient's age to complete this topic HPV Vaccines Aged Out No longer eligi ble based on patient's age to complete this topic Hepatitis A Vaccines Aged Out No long er eligible based on patient's age to complete this topic IPV Vaccines Aged Out No longer eligi ble based on patient's age to complete this topic MMR Vaccines Aged Out No longer eligi ble based on patient's age to complete this topic Meningococcal ACWY Vaccine Aged Out N o longer eligible based on patient's age to complete this topic Meningococcal B Vaccine Aged Out No l onger eligible based on patient's age to complete this topic Pneumococcal Vaccine: Pediat rics (0 to 5 Years) and At-Risk Patients (6 to 64 Years) Aged Out No longer eligible b ased on patient's age to complete this topic RSV Immunization Patients Un keith 20 months Aged Out No longer eligible b ased on patient's age to complete this topic Varicella Vaccines Aged Out No longer eligible based on patient's age to complete this topic
--- OUTSIDE RECORDS SUMMARY | 2024-10-19 12:16 | XMS_ITS | Data Portability ---
Author Organization [facility], [facility] Address [address] [place] [address] Assessment No assessment recorded. Plan of Treatment Reminders Order Date Submit Date Provider Last Modified By Organization Details Last Modified Time Details Appointments None record ed. Lab None record ed. Referral None record ed. Procedures None record ed. Surgeries None record ed. Imaging None record ed. Medication Orders None record ed. Patient TargetsNo targets recorded. Patient InstructionsNo instructions recorded. Reason for Referral None Reported. Problems Name Problem SNOMED Code Status Onset Date Resolution Date Notes Provider Name and Address Organization Details Recorded Time Acute conjunctiv itis 41513324 Completed 200605/13/2013 Not Available [facility] 3 02:02:28 Major depression , melancholi c type 618388155 Active 2006 Not Available [facility] 3 03:14:25 Low back pain 235713654 Active 2006 Not Available [facility] 3 03:14:25 Backache 560230886 Completed 200605/13/2013 Not Available [facility] 3 02:01:14 Streptococ fiona sore throat 74382511 Completed 200605/13/2013 Not Available [facility] 3 02:02:03 Non-organi c sleep disorder 487743058 Active 2006 Not Available [facility] 3 03:14:25 Problem Notes None recorded. Medical Equipment None Reported. Medications Name Sig Start Date Stop Date Status Note LastModified by Organization Details LastModified Time fluoxetine 40 mg capsule 2006 active Take 1.00 caps every day before noon Not Available Not Available Not Available ibuprofen 800 mg tablet 2006 active Take 1.00 tabs 3 times daily as needed; with food, for pain Not Available Not Available Not Available clotrimazole 1 % vaginal cream 2006 active Take 1.00 applics every night at bedtime as needed; at introitus as unstructed Not Available Not Available Not Available Lidoderm 5 % topical patch 2006 active Take 1.00 patches as directed; apply to painful site as dir for 12 hr then remove to 12 hours. Not Available Not Available Not Available Ortho Tri-Cyclen LO (28) 0.18 mg/0.215 mg/0.25 mg-25 mcg tablet 2006 active Take 1.00 tabs daily Not Available Not Available Not Available Flexeril 5 mg tablet 2006 active Take 1.00 tabs 3 times daily as needed; for muscle spasm Not Available Not Available Not Available Vitals None Recorded Social History None recorded. Functional Status None recorded. Mental Status None recorded. Family History Nothing Reported. Medical History No medical history recorded. Gynecological HistoryNo gynecological history recorded. Obstetrics History GPAL:G 0 P 0 0 0 0 Past Encounters Encounter ID Performer Location Encounter Start Date Encounter Closed Date Diagnosis/Indication Diagnosis SNOMED-CT Code Diagnosis ICD10 Code Diagnosis Note [id number] RICK [facility], OFFICE [address] [place] [address] [place] [address] 08/01/2006 09:10:03 08/01/2006 10:23:[id number] [place] [address] 08/21/2006 12:40:26 08/22/2006 08:17:[id number] [place] [address] 10/09/2006 11:33:49 10/10/2006 11:38:06 [id number] [facility] , [address] [place] [address] 10/10/2006 10:28:52 10/10/2006 13:28:[id number] [place] [address] 10/22/2006 08:28:27 10/23/2006 07:46:[id number] RICK [address] [place] [address] 12/11/2006 15:40:58 12/12/2006 10:25:10 [id number] [facility], [address] [place] [address] 01/03/2007 16:15:57 01/06/2007 08:59:59 [id number] Radiology , [facility] [address] [facility] [place] [address] 02/27/2007 16:31:46 02/27/2007 16:53:29 Health Concerns Section Related Observation LastModified by Organization Detai ls LastModified Time None Recorded Concern Status LastModified by Organization Details LastModified Time None Recorded Advance Directives Directive None Recorded Payers Encounter Date Sequence Insurance Name Policy Number Policy Olvera Covered Member ID Olvera Member ID Guarantor Name 10/10/2006 1 [facility] (MEDICAID HMO) Bushra Layne [id number] Bushra Layne 10/22/2006 1 [facility] NET PLAN (MEDICAID HMO) Bushra Layne [id number] Bushra Layne 12/11/2006 1 [facility] NET PLAN (MEDICAID HMO) Bushra Layne [id number] Bushra Layne 01/03/2007 1 [facility] NET PLAN (MEDICAID HMO) Bushra Layne [id number] Bushra Layne 01/03/2007 2 [place] [facility] Bushra Layne [id number] Bushra Layne 02/27/2007 1 [facility] NET PLAN (MEDICAID HMO) Bushra Layne [id number] Bushra Layne 02/27/2007 2 [place] [facility] Bushra Layne [id number] Bushra Layne OBGyn Episode No OBEpisode recorded.
== END 2024-10-19 10:55 | disposition home or self-care (01) ==
LOC: HO.HGS 10:28
PROVIDERS: PCP Internal Medicine; Visit Provider Physician Assistant Surgical
DX: Z90.49 Acquired absence of other specified parts of digestive tract (principal)
CPT/HCPCS: 99024

== ENCOUNTER 2025-01-25 07:54 | Outpatient (AMB) | payer OTHER, SELFPAY ==
--- OUTSIDE RECORDS SUMMARY | 2025-01-25 07:56 | XMS_ITS | Clinical Summary ---
Author Organization [facility] Address [address] [place] [id number] Phone Care Team Providers Care Radiation Protection Technician Name Role Phone Milena Moy MD Primary Care Provider [phone] Allergies Active Allergy Reactions Criticality Noted Date Comments Aloe 05/25/2019 Amoxicillin 05/25/2019 Sulfamethoxazole-Trimethoprim 2018 Erythromycin 05/25/2019 Medications RANITIDINE HCL ORAL Take by mouth. Active Social History Tobacco Use Types Packs/Day Years Used Date Smoking Tobacco: Never Smokeless Tobacco: Never Alcohol Use Standard Drinks/Week Comments Never 0 (1 standard drink = 0.6 oz pur e alcohol) Education Answer Date Recorded Are you interested in more education? Not on nannette e 10/19/2022 Are you concerned about learning? Not on file 10/19/2022 No 10/19/2022 No 10/19/2022 Digital Access Answer Date Recorded No 11/17/2022 No 11/17/2022 No 11/17/2022 Reliable internet access at home? Not on file 11/17/2022 Device with a working camera? Not on file Comments No Sex and Gender Information Value Date Recorded Sex Assigned at Female 05/25/2019 12:24 PM EST Legal Sex Female 10:30 PM EDT Gender Identity Female 05/25/2019 12:24 PM EST Sexual Orientation Straight 05/25/2019 12 :24 PM EST Last Filed Vital Signs Vital Sign Reading Time Taken Comments Blood Pressure 148/83 07/15/2020 11:47 AM EST Pulse 86 07/15/2020 11:47 AM EST Temperature 37 C (98.6 F) 07/15/2020 11:50 AM EST Respiratory Rate 18 07/15/2020 1:37 PM EST Oxygen Saturation 100% 07/15/2020 1:57 PM EST Inhaled Oxygen Concentration - - Weight 101.2 kg (223 lb) 06/27/2020 7:41 AM EST Height 165.1 cm (5' 5 ) 06/27/2020 7:41 AM EST Body Mass Index 37.11 06/27/2020 7:41 AM EST Plan of Treatment Health Maintenance Due Date Last Done Comments Adult Td,Tdap Booster 1977 LIPID PANEL 1977 DEPRESSION SCREENING 1989 HEPATITIS C SCREENING 1995 HIV ONE-TIME SCREENING (18-6 5 YEARS) 1995 PAP SMEAR 1998 MAMMOGRAM 2017 COLOGUARD 2022 COLONOSCOPY 2022 COLORECTAL CANCER SCREENING 2022 FIT TEST 2022 FOBT 2022 SIGMOIDOSCOPY 2022 VIRTUAL COLONOSCOPY 2022 COVID-19 VACCINE ( - 2023-2 5 season) 2024 SMOKING STATUS SCREENING (On ce After 26 Yrs) Completed 06/27/2020 HEPATITIS A VACCINES Aged Out No long er eligible based on patient's age to complete this topic HIB VACCINES Aged Out No longer eligi ble based on patient's age to complete this topic MENINGOCOCCAL VACCINES (ACWY) Aged Out No longer eligible based on patient's age to complete this topic MENINGOCOCCAL VACCINES (B) Aged Out N o longer eligible based on patient's age to complete this topic PNEUMOCOCCAL VACCINES (0-49 years) Aged Out No longer eligible based on patient's age to complete this topic Medical Devices Not on file Insurance [facility] HMO POS HMO POS HMO POS HMO POS HMO POS HMO POS HMO POS O POS O POS Care Teams Radiation Protection Technician Relationship Specialty Start Date End Date Milena Moy MD [address] [place] [address] PCP - General Internal Medicine 06/27/20 Additional Source Comments The information contained in this document represents components of the legal health record. It is not the complete legal health record.[facility]
--- OUTSIDE RECORDS SUMMARY | 2025-01-25 07:56 | XMS_ITS | Clinical Summary ---
Author Organization [facility] ity Address [address] [place] [address] Care Team Providers Care Glue Drier Operator Name Role Phone Unavailable Primary Care Provider [...] Vaccine ( - 2023-2 5 season) 2024 Depression Screening 06/24/2024 Influenza Vaccine (#1) 2025 HIB Vaccines Aged Out No longer [...] 5 Years) and At-Risk Patients (6 to 49 Years) Aged Out No longer eligible b ased on patient's age to complete this topic RSV Immunization Patients Un keith 20 months Aged Out No longer eligible b ased on patient's age to complete this topic Varicella Vaccines Aged Out No longer eligible based on patient's age to complete this topic
[2025-01-25 08:11] VITALS: BP 128/76; PULSE 84; TEMP 36.8; O2SAT 97; BMI 39.1
--- NOTE | 2025-01-25 08:11 | MHC.OFFWIV ---
Intake Vital Signs 01/25/25 08:11 Height 5 ft 5 in Weight 235 lb BMI 39.1 BP 128/76 Blood Pressure Location Lt brachial Position Sitting Pulse 84 Pulse Source Pulse Oximeter Temp 98.2 F Temp Source Oral Pulse Oximetry (%) 97 Oxygen Delivery Method Room Air Intake Visit Reasons: EP-b/l swollen foot Intake Note: presents with bilateral painful & swollen feet for 5 days - denies injury Patient Tobacco Use Status: Never used Tobacco Allergies aloe (ALOE) Allergy (Intermediate, Verified 01/25/25 08:18) Hives amoxicillin Allergy (Intermediate, Verified 01/25/25 08:18) Hives azithromycin (From ZITHROMAX) Allergy (Intermediate, Verified 01/25/25 08:18) Hives fluconazole Allergy (Intermediate, Verified 01/25/25 08:18) swelling in the face lips get blisters Penicillins (PCN) Allergy (Intermediate, Verified 01/25/25 08:18) Hives Sulfa (Sulfonamide Antibiotics) Allergy (Intermediate, Verified 01/25/25 08:18) Hives sulfamethoxazole (From BACTRIM) Allergy (Intermediate, Verified 01/25/25 08:18) Hives trimethoprim (From BACTRIM) Allergy (Intermediate, Verified 01/25/25 08:18) Hives Do you need a note to return to daycare/school/sports/work: Yes HPI HPI Comments History of Present Illness Details History of Present Illness - The patient is a 50-year-old female presenting with swelling in the feet. - The swelling began last Saturday, worsening by day's end, leading to the absence of visible ankles and toes appearing like nuggets. - She has been elevating her feet and using gel socks for relief, which provided some improvement. - She denies any calf pain, prolonged travel, or use of compression stockings. - She experiences occasional sharp chest pain, which she associates with heartburn. - The patient reports a stabbing, burning pain in her foot, localized to a specific area, which has been investigated with an MRI without a definitive cause. - She has been prescribed numbing medication for the foot pain, which provides partial relief. - She denies trauma or fall. 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 - She denies calf pain, redness, warmth, numbness, tingling, knee pain, or hip pain. Physical Exam General: Cooperative, healthy appearing, comfortable, no acute distress and well developed Orientation: Patient oriented x3 Respiratory: Normal respiratory effort and able to speak in complete sentences. Clear to auscultation bilaterally Cardiovascular: Regular rate and rhythm. Normal S1 and S2 Skin: No rashes or lesions noted Neuro: Sensation is intact. Extremities: Swelling noted in feet, no pitting noted. Good pulses and color in feet. Normal to inspection otherwise. Patient was informed and verbally consented to the use of an ambient scribe for clinic note documentation during this visit. 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 Tobacco Use Status: Never used Tobacco e-Cigarette/Vaping Use: Never Used service: No Current occupational status: employed Cognitive needs: No Hearing needs: No Vision needs: Yes Review of Systems Const All systems reviewed & are unremarkable except as noted in HPI and below Physical Exam Vital Signs: Last Vital Signs Temp 98.2 F 01/25/25 08:11 Pulse 84 01/25/25 08:11 BP 128/76 01/25/25 08:11 Pulse Ox 97 01/25/25 08:11 Oxygen Delivery Method Room Air 01/25/25 08:11 BMI result Body Mass Index 39.1 Assessment & Plan Assessment & Plan (1) Bilateral swelling of feet: Code(s): M79.89 - Other specified soft tissue disorders Plan Most likely dependent edema Plan - Initiate a short course of Lasix to reduce fluid retention, with the patient advised of increased urination as a side effect. - Recommend the use of compression stockings to manage edema, with a prescription sent to a local supplier. - Advise follow-up with the primary care physician to monitor kidney function and overall health status. Medications: New compress.stocking,knee,reg,med As directed 2 ea 0RF furosemide (Lasix) 20 mg PO DAILY 3 tabs 0RF 3 days Coding Level of Care Code Est Pt Level 3 (58815) Diagnoses Bilateral swelling of feet M79.89
== END 2025-01-25 09:23 | disposition home or self-care (01) ==
PROVIDERS: PCP Internal Medicine; Visit Provider Physician Assistant Medical
DX: M79.89 Other specified soft tissue disorders (principal)

== ENCOUNTER 2025-01-26 12:13 | Outpatient (AMB) | payer OTHER, SELFPAY ==
[2025-01-26 12:32] VITALS: BP 122/78; PULSE 74; RESP 18; TEMP 36.9; O2SAT 100; BMI 39.6
--- NOTE | 2025-01-26 12:32 | MHC.PC.OV ---
Vital Signs 01/26/25 12:32 Height 5 ft 5 in Weight 238 lb BMI 39.6 BP 122/78 Blood Pressure Location Lt brachial Position Sitting Respiration 18 Pulse 74 Pulse Source Pulse Oximeter Temp 98.5 F Temp Source Oral Pulse Oximetry (%) 100 Oxygen Delivery Method Room Air Intake Visit Reasons: PE Intake Note: Pt is here today for PE. Pt was seen in a walk in yesterday for swelling in her lower legs and feet. Allergies aloe (ALOE) Allergy (Intermediate, Verified 01/26/25 12:33) Hives amoxicillin Allergy (Intermediate, Verified 01/26/25 12:33) Hives azithromycin (From ZITHROMAX) Allergy (Intermediate, Verified 01/26/25 12:33) Hives fluconazole Allergy (Intermediate, Verified 01/26/25 12:33) swelling in the face lips get blisters Penicillins (PCN) Allergy (Intermediate, Verified 01/26/25 12:33) Hives Sulfa (Sulfonamide Antibiotics) Allergy (Intermediate, Verified 01/26/25 12:33) Hives sulfamethoxazole (From BACTRIM) Allergy (Intermediate, Verified 01/26/25 12:33) Hives trimethoprim (From BACTRIM) Allergy (Intermediate, Verified 01/26/25 12:33) Hives Medication List - Last Reconciled 01/26/25 by Milena Moy MD compress.stocking,knee,reg,med As directed [digestive enzymes PO] esomeprazole magnesium (Nexium) 20 mg PO DAILY furosemide (Lasix) 20 mg PO DAILY 3 days [glp active fiber] [GLP pre PO] [glp pro PO] meloxicam 7.5 mg PO DAILY ondansetron 4 mg PO Q8H PRN [tylenol PO Q4-6H PRN] valacyclovir 1,000 mg PO DAILY Tobacco use date assessed: 01/26/25 Dental Screening Dental Screen Date: 01/26/25 Did you have a dental visit in the last 12 months?: Yes Did you have a dental problem in the last 6 months where you did not have access to dental care?: No Was dental information given to patient?: Patient has dentist HPI PE HPI Details Pt presents for PE. Pt c/o bilateral leg swelling last week after working an extra day in the office standing and sitting for 10 hours, patient denies any recent traveling pain in the legs change in the diet shortness or breath PND orthopnea PFSH Medical History (Updated 01/26/25 @ 15:56 by Milena Moy MD) Colon cancer screening Annual physical exam BMI 36.0-36.9,adult Anxiety and depression GERD (gastroesophageal reflux disease) Torn ligament Frequent headaches Depression Surgical History Cholelithiasis (10/08/24) Hx of wisdom tooth extraction Hx of tonsillectomy Family History Father AIDS Substance use disorder Mother Lung cancer Mental health disorder Social History 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 1. Little interest or pleasure in doing things: several days 2. Feeling down, depressed, or hopeless: several days 3. Trouble falling or staying asleep, or sleeping too much: several days 4. Feeling tired or having little energy: several days 5. Poor appetite or overeating: several days 6. Feeling bad about yourself - or that you are a failure or have let yourself or your family down: not at all 7. Trouble concentrating on things, such as reading the newspaper or watching television: several days 8. Moving or speaking so slowly that other people could have noticed. Or the opposite - being so fidgety or restless that you have been moving around a lot more than usual: not at all 9. Thoughts that you would be better off or of hurting yourself in some way: not at all Total score: 6 Depression Screening Interpretation: Negative Depression Screening Done: Yes 60206 - PHQ-9 Billing: Yes Source: Developed by Drs. Santana Ceron, Ester Maher, Durga Caballero and colleagues, with an educational ai from [employer]. Thrive Questionnaire Date Thrive assessed: 01/26/25 I am a: Patient What is your living situation today?: I have a steady place to live Within the past 12 months, did the food you bought not last and you didn't have the money to get more?: Never true Within the past 12 months, did you worry whether your food would run out before you got money to buy more?: Never true Do you have trouble paying for medicines?: Yes Do you have trouble getting transportation to medical appointments?: No Do you have trouble paying your heating and electricity bill?: Yes Do you have trouble taking care of your child, family member or friend?: No Do you have trouble with day-to-day activities such as bathing, preparing meals, shopping, managing finances, etc.?: No Are you currently unemployed and looking for a job?: No Are you interested in more education?: No Please select the resources that you would like help with: None Currently or been in a relationship where the following occur: No concerns reported THRIVE Score: 1 AUDIT C Alcohol Use Questionnaire (AUDIT-C) 1. How often do you have a drink containing alcohol?: Never Total Score: 0 JUANY-7 AMB Questionnaire JUANY-7 Date JUANY - 7 assessed: 01/26/25 Feeling nervous, anxious, or on edge: 1 = Several days Not being able to stop or control worryin = Several days Worrying too much about different things: 1 = Several days Trouble relaxin = Several days Being so restless that it is hard to sit still: 1 = Several days Becoming easily annoyed or irritable: 1 = Several days Feeling afraid as if something awful might happen: 1 = Several days Total JUANY-7 score (0-4 normal; 5-9 mild; 10-14 moderate; 15-21 severe): 7 Source: Developed by Drs. Santana Ceron, Ester Maher, Durga Caballero and colleagues, with an educational ai from [employer]. JUANY-7 Assessment Billing JUANY-7 Assessment Tool: JUANY-7 Assessment 51305 Review of Systems Const All systems reviewed & are unremarkable except as noted in HPI and below Eyes Reports no additional complaints ENT Reports no additional complaints Card Reports no additional complaints Resp Reports no additional complaints GI Reports no additional complaints Reports no additional complaints Physical exam (Primary Care) Vital Signs: Last Vital Signs Temp 98.5 F 01/26/25 12:32 Pulse 74 01/26/25 12:32 Resp 18 01/26/25 12:32 BP 122/78 01/26/25 12:32 Pulse Ox 100 01/26/25 12:32 Oxygen Delivery Method Room Air 01/26/25 12:32 BMI result Body Mass Index 39.6 Tobacco/Smoking Status: Tobacco use Status Tobacco use date assessed 01/26/25 01/26/25 12:35 Patient Tobacco Use Status Never used Tobacco 01/26/25 12:35 e-Cigarette/Vaping Use Never Used 01/26/25 12:35 PHQ-9: PHQ-9 Score PHQ-9: Total score 6 01/26/25 13:11 Depression Screening Interpretation: Negative Thrive Assessment: Date of Thrive Assessment Date Thrive assessed 01/26/25 01/26/25 12:35 Currently or been in a relationship where the following occur: No concerns reported Const General: no acute distress HENMT Head: Yes normal to inspection Face and sinus: Yes normal facial exam Throat: Yes posterior oropharynx normal Eyes General: appearance normal, both eyes and all related structures Resp Effort & Inspection: normal respiratory effort Auscultation: clear to auscultation bilaterally Cardio Rhythm: regular rhythm Heart sounds: S1 normal heart sound present and S2 normal heart sound present GI Inspection: Yes normal to inspection Palpation (GI): Soft to palpation Percussion: Yes normal to percussion Auscultation: normal bowel sounds Extrem Other: Nonpitting lymphedema bilaterally Coding Level of Care Code Est Pt Prev Care 40-64y(61168) Diagnoses Annual physical exam Z00.00 Lower extremity edema R60.0 Menorrhagia N92.0 Mixed incontinence urge and stress N39.46 Additional Codes JUANY-7 Assessment Billing - JUANY-7 Assessment Tool: JUANY-7 Assessment 02620 ([id number]) PHQ-9 - 83769 - PHQ-9 Billing: Yes ([id number]) Assessment & Plan Assessment & Plan (1) Annual physical exam: Code(s): Z00.00 - Encounter for general adult medical examination without abnormal findings Category: Medical Plan: Well-balanced diet increase physical activity weight loss discussed with the patient. She will return for a Pap smear. Patient is up-to-date with the mammogram and had negative Cologuard last year. (2) Lower extremity edema: Code(s): R60.0 - Localized edema Category: Medical Plan: For dependent lower extremities edema patient was advised to wear compression knee-highs, elevate lower extremities follow low-sodium diet and lose weight (3) Menorrhagia: Code(s): N92.0 - Excessive and frequent menstruation with regular cycle Category: Medical Plan: For perimenopausal menorrhagia obtain pelvic ultrasound (4) Mixed incontinence urge and stress: Comment: Evaluated by Urology Code(s): N39.46 - Mixed incontinence Category: Medical Plan: Kegel's exercises discussed with the patient Myrbetriq will be tried Orders: Orders Complete Blood Count Auto Diff Today E55.9 - Vitamin D deficiency, unspecified, R73.9 - Hyperglycemia, unspecified, Z00.00 - Encounter for general adult medical examination without abnormal findings, Z68.36 - Body mass index [BMI] 36.0-36.9, adult Comprehensive [place]. Panel Fast Today E55.9 - Vitamin D deficiency, unspecified, R73.9 - Hyperglycemia, unspecified, Z00.00 - Encounter for general adult medical examination without abnormal findings, Z68.36 - Body mass index [BMI] 36.0-36.9, adult UA w Microscopic Today E55.9 - Vitamin D deficiency, unspecified, R73.9 - Hyperglycemia, unspecified, Z00.00 - Encounter for general adult medical examination without abnormal findings, Z68.36 - Body mass index [BMI] 36.0-36.9, adult IRON PROFILE Today E55.9 - Vitamin D deficiency, unspecified, R73.9 - Hyperglycemia, unspecified, Z00.00 - Encounter for general adult medical examination without abnormal findings, Z68.36 - Body mass index [BMI] 36.0-36.9, adult Lipid Panel Today E55.9 - Vitamin D deficiency, unspecified, R73.9 - Hyperglycemia, unspecified, Z00.00 - Encounter for general adult medical examination without abnormal findings, Z68.36 - Body mass index [BMI] 36.0-36.9, adult TSH reflex Free T4 Today E55.9 - Vitamin D deficiency, unspecified, R73.9 - Hyperglycemia, unspecified, Z00.00 - Encounter for general adult medical examination without abnormal findings, Z68.36 - Body mass index [BMI] 36.0-36.9, adult Follicle Stimulating Hormone Today E55.9 - Vitamin D deficiency, unspecified, R73.9 - Hyperglycemia, unspecified, Z00.00 - Encounter for general adult medical examination without abnormal findings, Z68.36 - Body mass index [BMI] 36.0-36.9, adult Hemoglobin A1c Today E55.9 - Vitamin D deficiency, unspecified, R73.9 - Hyperglycemia, unspecified, Z00.00 - Encounter for general adult medical examination without abnormal findings, Z68.36 - Body mass index [BMI] 36.0-36.9, adult US pelvic and transvaginal Today E55.9 - Vitamin D deficiency, unspecified, N94.6 - Dysmenorrhea, unspecified, R73.9 - Hyperglycemia, unspecified, Z00.00 - Encounter for general adult medical examination without abnormal findings, Z68.36 - Body mass index [BMI] 36.0-36.9, adult Medications: New Myrbetriq ER (mirabegron) 25 mg PO DAILY 90 tabs 0RF NS
--- OUTSIDE RECORDS SUMMARY | 2025-01-26 12:56 | XMS_ITS | Clinical Summary ---
Author Organization [facility] Address [address] [place] [id number] Phone Care Team Providers Care Sales Account Coordinator Name Role Phone Milena Moy MD Primary Care Provider Allergies Active Allergy Reactions Criticality Noted Date [...] topic Medical Devices Not on file Insurance [facility] HMO POS HMO POS HMO POS HMO POS HMO POS HMO POS HMO POS O POS O POS Care Teams Sales Account Coordinator Relationship Specialty Start Date End Date Milena Moy MD [address] [place] [address] PCP - General Internal Medicine 06/27/20 Additional Source Comments The information contained in this document represents components of the legal health record. It is not the complete legal health record.[facility]
--- OUTSIDE RECORDS SUMMARY | 2025-01-26 12:56 | XMS_ITS | Clinical Summary ---
Author Organization [facility] ity Address [address] [place] [address] Care Team Providers Care Hat Stock Laminating Machine Operator Name Role Phone Unavailable Primary Care [...]
== END 2025-01-26 15:57 | disposition home or self-care (01) ==
LOC: HO.HMCC 12:14
PROVIDERS: PCP Internal Medicine; Visit Provider Internal Medicine
DX: Z00.00 Encounter for general adult medical examination without abnormal findings (principal); R60.0 Localized edema; N92.0 Excessive and frequent menstruation with regular cycle; N39.46 Mixed incontinence

== ENCOUNTER → 2025-01-26 12:13 | Outpatient (BNVA) | payer OTHER, SELFPAY | PROVIDERS: PCP Internal Medicine; Visit Provider Internal Medicine | DX: Z00.00 Encounter for general adult medical examination without abnormal findings (principal); R60.0 Localized edema; N92.0 Excessive and frequent menstruation with regular cycle; N39.46 Mixed incontinence; R73.9 Hyperglycemia, unspecified | CPT/HCPCS: 96127 ==

== ENCOUNTER 2025-02-08 08:16 | Outpatient (REF) | payer OTHER, SELFPAY ==
--- OUTSIDE RECORDS SUMMARY | 2025-02-08 08:36 | XMS_ITS | Clinical Summary ---
Author Organization [facility] ity Address [address] [place] [address] Care Team Providers Care Lead Assembler Name Role Phone Unavailable Primary Care Provider [...]
[2025-02-08 09:58] LABS: MANUAL DIFF FLAG NO
[2025-02-08 10:01] LABS: Appearance Urine Clear; Glucose Urine UA Negative (Negative); PH 5.5 (5.0-9.0); Specific Gravity - Urine 1.020 (1.005-1.025); UMIC TRIGGER UA YES
[2025-02-08 10:04] LABS: Hematocrit 37.5 % (37.0-47.0); Hemoglobin 12.2 g/dl (12.0-16.0); Imm Gran Abs Auto 0.02 X10*3/uL (0.00-0.03); Imm Gran Pct Auto 0.3 % (0.0-0.4); Lymphocytes Absolute Auto 1.7 X10*3/uL (1.2-4.9); Mean Corpuscular HGB Conc 32.5 g/dl (31.0-35.0); Mean Corpuscular Hemoglobin 30.3 pg (27.0-33.0); Mean Corpuscular Volume 93.3 fL (80.0-98.0); NRBC Abs Auto 0.000 X10*3/uL (0.0-0.012); NRBC Pct Auto 0.0 /100WBC (0.0-0.2); Platelet Count 312 X10*3/uL (160-400); Red Blood Count 4.02 X10*6/uL (4.20-5.50); White Blood Count 6.8 X10*3/uL (4.8-10.8)
[2025-02-08 10:21] LABS: Hemoglobin A1C 125.0532 umol/L; Total Hemoglobin (HGBA1C) 3262.2335 umol/L
[2025-02-08 10:58] LABS: Alanine Aminotransferase 16 U/L (0-31); Albumin Level 4.0 g/dL (3.5-5.0); Alkaline Phosphatase 83 U/L (39-117); Anion Gap 13 (12-20); Aspartate Amino Transferase 25 U/L (5-31); Blood Urea Nitrogen 8 mg/dL (9-16); Calcium 8.6 mg/dL (8.4-10.2); Carbon Dioxide 24 mmol/L (22-29); Chloride 107 mmol/L (96-108); Cholesterol 172 mg/dL (<200); Estimated Glomerular Filt Rate > 60; HDL Cholesterol 59 mg/dL (>40); Iron 37 mcg/dL (30-160); Percent Iron Saturation 12 % (15-50); Potassium 4.4 mmol/L (3.3-5.1); Sodium 140 mmol/L (135-145); Total Iron Binding Capacity 317 mcg/dL (228-428); Total Protein 6.7 g/dL (6.5-8.0); Triglycerides 101 mg/dL (<150); Unsaturated Iron Binding 280 ug/dL
[2025-02-09 06:49] LABS: Follicle Stimulating Hormone 8.9 mIU/mL
== END 2025-02-08 08:17 | disposition home or self-care (01) ==
LOC: HO.HMGCLDS 08:16
PROVIDERS: PCP Internal Medicine; Visit Provider Internal Medicine
DX: Z00.00 Encounter for general adult medical examination without abnormal findings (principal); E55.9 Vitamin D deficiency, unspecified; R73.9 Hyperglycemia, unspecified; Z68.36 Body mass index [BMI] 36.0-36.9, adult; Z13.6 Encounter for screening for cardiovascular disorders; Z13.29 Encounter for screening for other suspected endocrine disorder
CPT/HCPCS: 36415; 80053; 80061; 81001; 83001; 83036; 83540; 84443; 85025